=== PATIENT | male | born 1960 | race Two or more races ===

== ENCOUNTER 2025-04-26 18:27 | Inpatient (IN) | payer MEDICARE, OTHER ==
[~2025-04-26] VITALS: Ht 180.3 cm; Wt 89.5 kg
--- NOTE | 2025-04-26 19:01 | ED.PDOC ---
History of Present Illness HPI Comments 64 y/o obese M presents with c/c of shortness of breath. Patient endorses on sudden, unprovoked, and atraumatic onset of difficulty breathing, while eating dinner, earlier, this evening, 45x minutes prior to ED arrival. Significant reported history of [place] s/p PTCA in February,. He comments on having kristen athing difficulty 2x before in the past in addition to having a concurrent nonproductive chronic cough following PTCA placement. No endorsed recent additional ailments, travel, sick contacts, or further pertinent events/history. Denies any chest pain, congestion, fever, or further acute symptoms. Chief Complaint: Shortness of Breath Time Seen by MD: 18:45 Reviewed Notes: Nurses Notes, Medications, Allergies Allergies: Coded Allergies: NO KNOWN ALLERGIES (Unverified , 04/26/25) Information Source: Patient Mode of Arrival: Ambulatory Severity: Moderate Timing: Minutes Duration: Since onset Prehospital treatment: None Past Medical History PAST MEDICAL HISTORY: [place] Surgical History: PTCA Family History Family History: Unknown Social History Smoker: Non-Smoker Alcohol: Denies ETOH Use Drugs: Denies Drug Use Lives In: Home All Other Systems: Reviewed and Negative (Comprehensive review of systems are negative unless stated in HPI) Physical Exam General Appearance: No Apparent Distress, Obese HEENT: Normal ENT Inspection, Pharynx Normal, TMs Normal Neck: Full Range of Motion, Non-Tender, Normal, Normal Inspection Respiratory: Chest Non-Tender, Lungs Clear, No Accessory Muscle Use, No Respiratory Distress, Normal Breath Sounds Cardiovascular: No Edema, No JVD, No Murmur, No Gallop, Normal Peripheral Pulses, Regular Rate/Rhythm Breast Exam: Deferred Gastrointestinal: No Organomegaly, Non Tender, No Pulsatile Mass, Normal Bowel Sounds, Soft Genitalia: Deferred Pelvic: Deferred Rectal: Deferred Extremities: No calf tenderness, Normal capillary refill, Normal inspection, Normal range of motion, Non-tender, No pedal edema Musculoskeletal : Apperance: Normal Neurologic: Alert, compound mixer II-XII nml as Tested, No Motor Deficits, Normal Affect, Normal Mood, No Sensory Deficits Cerebellar Function: Normal Reflexes: Normal Skin: Dry, Normal Color, Warm Lymphatic: No Adenopathy Was a procedure done? Was a procedure done?: No EKG EKG : Pulse Rate (adult): 92 [place]: Normal Cardiac Rhythm: NSR Block: None Hypertrophy: None ST: Normal Differential Dx Considerations may include: URI, PNA, PE, ACS, NJ, anxiety, viral, among others X-Ray, Labs, Meds, VS Vital Signs Date Time Temp Pulse Resp B/P (MAP) Pulse Ox O2 Delivery O2 Flow Rate FiO2 04/26/25 19:17 85 18 99 Room Air 04/26/25 19:17 98.3 85 18 148/88 (108) 99 98.3 04/26/25 19:01 92 04/26/25 18:35 92 04/26/25 18:34 98.0 89 15 186/106 99 98.0 Lab Test 04/26/25 19:36 04/26/25 18:36 Range/Units Troponin I High Sensitivity 14 15 </=54 ng/L Prothrombin Time 10.5 9.3-11.8 sec Prothrombin Time INR 0.99 0.9-1.15 Activated Partial Thromboplast Time 27.1 24.5-34.5 SEC B-Type Natriuretic Peptide 115.29 0-100 pg/mL Current Medications Medications (Trade) Dose Ordered Sig/Tigre Route Start Time Stop Time Status Last Admin Aspirin 162 mg ONCE ONCE PO 04/26/25 19:00 04/26/25 19:01 DC 04/26/25 18:58 [place] [id number] Ph: [phone] DIAGNOSTIC IMAGING Diagnostic Imaging Report : [id number] Signed PATIENT: KEVIN GOODE ACCT: [id number] UNIT: [id number] : 1960 LOC: ER ROOM / BED: / AGE / SEX: 64 / M ADM STATUS: REG ER SERVICE 184 ORDERING PHYSICIAN: LAVERNE PANDA MD PROCEDURE(s): CXR1 - CHEST XRAY 1 VIEW REASON: SOB ORDER NUMBER(s): [id number], ACCESSION NUMBER(s): [id number] CHEST RADIOGRAPH Indication: SOB Technique: Single frontal view of the chest was obtained COMPARISON: None FINDINGS: Lines and Tubes: None Lungs: Clear Pleura: No pleural effusion or pneumothorax. Cardiomediastinal contours: Unremarkable IMPRESSION: No abnormality demonstrated. ATED BY: ARPAN STEINER MD DICTATED DATE/TIME: 04/26/251917 SIGNED BY: ARPAN STEINER MD SIGNED DATE/TIME: 04/26/251917 CC: Time of 1ST Reevaluation: 19:15 Reevaluation 1ST: Unchanged Patient Education/Counseling: Diagnosis, Treatment, Other (need for admission ) Family Education/Counseling: No Family Present SEPSIS Sepsis Screen Date sepsis recognized/suspect: Apr 26, 2025 Time Sepsis recognized/suspect: 1836 Recent Procedure: No On Antibiotic Therapy: No Respiratory Rate >20: No Heart Rate >90: No Temp<36 C (96.8 F) or >38.3 C: No SBP <90 or MAP <65 mmHG: No New Acute Mental Status Change: No Is the patient on CPAP, BIPAP,: No Physician Orders Electrocardigram (04/26/25 18:40) Troponin-I Hs (04/26/25 21:40) Electrocardigram (04/26/25 19:40) Electrocardigram (04/26/25 21:40) Outboard Motor Mechanic (04/26/25 18:47) Chest Xray 1 View (04/26/25 18:47) Vital Signs Date Time Temp Pulse Resp B/P (MAP) Pulse Ox O2 Delivery O2 Flow Rate FiO2 04/26/25 19:17 85 18 99 Room Air 04/26/25 19:17 98.3 85 18 148/88 (108) 99 98.3 04/26/25 19:01 92 04/26/25 18:35 92 04/26/25 18:34 98.0 89 15 186/106 99 98.0 Medications Medications Dose Ordered Sig/Tigre Route Start Time Stop Time Status Last Admin Dose Admin Aspirin 162 mg ONCE ONCE PO 04/26/25 19:00 04/26/25 19:01 DC 04/26/25 18:58 Departure 1 Departure Time of Disposition: 21:07 Impression: Primary Impression: Acute coronary syndrome Disposition: ADMITTED INPATIENT Admit to: [facility] Condition: Guarded Discharged With: Self Comments 64-year-old male with a history of coronary disease and recent stents now presents with some tightness in his chest that he states feels similar to previous heart attack. Patient was given aspirin. His initial troponin is normal. Patient will need to be admitted for supportive care and further wo rkup. Critical Care Note Critical Care Time?: No Stability Stability form required: No Heart Score Heart Score: Heart Score Response (Comments) Value History Moderate Suspicious 1 EKG Normal 0 Age 45-64 1 Risk Factors 1 or 2 risk factors 1 Troponin Normal limit 0 Total 3 I personally scribed for LAVERNE PANDA MD ([email or web address]) on 04/26/25 at 19:01. Electronically submitted by Xander Bullock ([email or web address]). I personally scribed for LAVERNE PANDA MD ([email or web address]) on 04/26/25 at 19:29. Electronically submitted by Xander Bullock ([email or web address]). LAVERNE PANDA MD Apr 26, 2025 19:01
[2025-04-26 19:12] LABS: INR 0.99 (0.9-1.15); Partial Thromboplastin Time 27.1 SEC (24.5-34.5); Prothrombin Time 10.5 sec (9.3-11.8)
--- NOTE | 2025-04-26 19:21 | DVH ---
CHEST RADIOGRAPH Indication: SOB Technique: Single frontal view of the chest was obtained COMPARISON: None FINDINGS: Lines and Tubes: None Lungs: Clear Pleura: No pleural effusion or pneumothorax. Cardiomediastinal contours: Unremarkable IMPRESSION: No abnormality demonstrated.
[2025-04-26] MEDS: SODIUM CHLORIDE 0.9% 1,000 ML IV SCH (21:45)
[2025-04-26] MEDS ORDERED: ACETAMINOPHEN 325 MG TAB PO PRN (21:45)
[2025-04-26] MEDS ORDERED: HYDROcodone-ACET 5/325MG TAB PO PRN (21:45)
[2025-04-26] MEDS ORDERED: ONDANSETRON HCL 4 MG/2 ML VIAL IV PRN (21:45)
[2025-04-26] MEDS ORDERED: DOCUSATE SOD 100 MG CAP PO PRN (21:45)
[2025-04-26] MEDS ORDERED: MORPHINE SULFATE INJ 2 MG/ml SYRG IV PRN (22:30)
[2025-04-26] MEDS ORDERED: DEXTROSE (50%) 50ML SYRG IV PRN (22:30)
[2025-04-26] MEDS ORDERED: NITROGLYCERIN 0.4 MG SL TAB SL PRN (22:30)
[2025-04-26 22:46] LABS: Hematocrit 42.1 % (41.0-53.0); Hemoglobin 14.0 g/dL (13.5-17.5); Mean Corpuscular Hemoglobin 27.4 pg (28.0-32.0); Mean Corpuscular Volume 82.4 fL (80.0-100.0); Nucleated Red Blood Cells % 0.1 %
--- NOTE | 2025-04-26 22:49 | DVHHP2 ---
History of Present Illness Reason for Visit: Acute respiratory distress History of Present Illness The patient is a 64-year-old male with past medical history of hyperlipidemia, DE status post PTCA, hypertension, diabetes mellitus, and CHF who presented to [facility] ED with complaint of shortness of breaths. Patient reports he has been experiencing difficulty breathing associated with chest pressure, nonproductive cough, increased work of breathing, getting worse that prompted this visit. Patient was seen and evaluated in the ED, laboratory data shows troponin 14, BNP 1 15.29, blood pressure 148/88, heart rate 86, temperature 98.3 F, O2 saturation 99% on oxygen. Chest x-ray showed no acute cardiopulmonary disease. Patient was given aspirin 162 mg by mouth x1, please see medication orders section in the computer. On my assessment, patient denies chest pain at this moment, no headache, dizziness, shortness of breaths at this moment, no nausea, vomiting, fever, no chills. Patient was admitted for further evaluation and medical management. Past Medical History HLD, HTN, DE, DM, CHF Past Surgical History PTCA Family History Reviewed, noncontributory to the management of this case. Past Social History The patient lives at home, denies smoking, alcohol or illicit drugs abuse. Review of Systems Constitutional: Yes: Weakness; No: Fever, Chills, Sweats, Malaise, Other Eyes: No: Pain, Vision change, Conjunctivae inflammation, Eyelid inflammation, Other, Redness ENT: No: Ear pain, Ear discharge, Nose pain, Nose discharge, Nose congestion, Mouth pain, Mouth swelling, Throat pain, Throat swelling, Other Respiratory: Shortness of breath; No: Cough, Dry, SOB with excertion, Wheezing, Hemoptysis, Pleuritic Pain, Sputum, Wheezing, Other Cardiovascular: Chest Pain (Chest pressure); No: Palpitations, Orthopnea, Paroxysmal Noc. Dyspnea, Edema, Lt Headedness, Other Gastrointestinal: No: Nausea, Vomiting, Abdominal Pain, Diarrhea, Constipation, Melena, Hematochezia, Other Genitourinary: No Dysuria, No Frequency, No Incontinence, No Hematuria, No Retention, No Other Musculoskeletal: No: other, neck pain, shoulder pain, arm pain, back pain, hand pain, leg pain, foot pain Skin: No: Rash, Lesions, Jaundice, Bruising, Other Neurological: No: Weakness, Numbness, Incoordination, Change in speech, Confusion, Seizures, Other Allergies: Coded Allergies: NO KNOWN ALLERGIES (Unverified , 04/26/25) Medications Current Medications Medications Dose Ordered Sig/Tigre Route Start Time Stop Time Status Last Admin Dose Admin Aspirin 81 mg DAILY PO 04/27/25 10:00 Sodium Chloride 1,000 ml @ 60 mls/hr [id number] IV 04/26/25 21:45 Acetaminophen/ Hydrocodone Bitart 1 tab Q4HP PRN PO 04/26/25 21:45 Ondansetron HCl 4 mg Q4HP PRN IV 04/26/25 21:45 Docusate Sodium 100 mg BIDPRN PRN PO 04/26/25 21:45 Acetaminophen 650 mg Q6HP PRN PO 04/26/25 21:45 Exam Vital Signs Vital Signs Date Time Temp Pulse Resp B/P (MAP) Pulse Ox O2 Delivery O2 Flow Rate FiO2 04/26/25 22:02 97.9 85 17 150/95 (113) 99 97.9 04/26/25 19:17 Room Air General Appearance: Alert, Oriented X3, Cooperative, No acute distress HEENT: Atraumatic, PERRLA, EOMI, Mucous membr. moist/pink Respiratory: Normal air movement Cardiovascular: Regular rate, Normal S1, Normal S2, No murmurs Abdominal: Normal bowel sounds, Soft, No tenderness, No hepatospenomegaly, No m asses Extremities: No clubbing, No cyanosis, No edema, Normal pulses, No tenderness/swelling Skin: No rashes, No significant lesion Neuro: Normal speech, Normal tone, Sensation intact, Cranial nerves 3-12 NL, Reflexes 2+, Other (Generalized weakness) Psych/Mental Status: Mental status NL, Mood NL Labs/Xrays Labs Test 04/26/25 21:52 04/26/25 18:36 Range/Units Troponin I High Sensitivity 14 </=54 ng/L Prothrombin Time 10.5 9.3-11.8 sec Prothrombin Time INR 0.99 0.9-1.15 Activated Partial Thromboplast Time 27.1 24.5-34.5 SEC B-Type Natriuretic Peptide 115.29 0-100 pg/mL PATIENT: GOODEKEVIN MORAN ACCT: [id number] UNIT: [id number] : 1960 LOC: ER ROOM / BED: / AGE / SEX: 64 / M ADM STATUS: REG ER SERVICE 46 ORDERING PHYSICIAN: LAVERNE PANDA MD PROCEDURE(s): CXR1 - CHEST XRAY 1 VIEW REASON: SOB ORDER NUMBER(s): [id number], ACCESSION NUMBER(s): [id number] CHEST RADIOGRAPH Indication: SOB Technique: Single frontal view of the chest was obtained COMPARISON: None FINDINGS: Lines and Tubes: None Lungs: Clear Pleura: No pleural effusion or pneumothorax. Cardiomediastinal contours: Unremarkable IMPRESSION: No abnormality demonstrated. SEPSIS Sepsis Screen Date sepsis recognized/suspect: Apr 26, 2025 Time Sepsis recognized/suspect: 1836 Recent Procedure: No On Antibiotic Therapy: No Respiratory Rate >20: No Heart Rate >90: No Temp<36 C (96.8 F) or >38.3 C: No SBP <90 or MAP <65 mmHG: No New Acute Mental Status Change: No Is the patient on CPAP, BIPAP,: No Physician Orders Electrocardigram (04/26/25 18:40) Electrocardigram (04/26/25 19:40) Electrocardigram (04/26/25 21:40) Hardware Test Engineer (04/26/25 18:47) Chest Xray 1 View (04/26/25 18:47) Aspirin Tablet (04/27/25 10:00) Allergies (04/26/25 21:42) Code Status (04/26/25 21:42) Sodium Chloride 0.9% (04/26/25 21:45) Oxygen Per Hour (04/26/25 21:42) Hydrocodone-Acet 5/325mg Tab (Ringoes 5/32 (04/26/25 21:45) Ondansetron Hcl (Zofran) (04/26/25 21:45) Docusate Sodium Capsule (Colace Capsule) (04/26/25 21:45) Complete Blood Count (04/27/25 04:00) Comprehensive Metabolic Panel (04/27/25 04:00) Condition: Serious (04/26/25 21:42) Acetaminophen Tablet (Tylenol Tablet) (04/26/25 21:45) Bedrest With Bathroom Privileg (04/26/25 21:42) Sequential Compression Device (04/26/25 ) Consistent Carb(Ccho)Diabetes (04/27/25 Breakfast) Carvedilol Tablet (Coreg Tablet) (04/27/25 10:00) Nifedipine Er (Procardia Xl (Time-Releas (04/27/25 10:00) Ticagrelor (Brilinta) (04/27/25 10:00) Atorvastatin (Lipitor) (04/27/25 22:00) Hemoglobin A1c (04/26/25 22:) Complete Blood Count (04/26/25:) Comprehensive Metabolic Panel (04/26/25:) Glucose Blood (Accu-Chek Comfort Curve T (04/27/25 07:00) Bedtime Insulin Scale (04/27/25 22:00) Moderate Insulin Ss (04/27/25 07:00) Dextrose 50% Syringe (04/26/25 22:30) Admit (04/26/25 22:) Nitroglycerin Sublingual (Ntrostat Subli (04/26/25 22:30) Morphine Sulfate Injection (04/26/25 22:30) Stat Ekg For Chest Pain (04/26/25:26) Notify Md Of Changes From Base (04/26/25 22:26) Airport Ramp Attendant For 24 Hours (04/26/25 22:26) Emergency Dysrhythmia Protocol (04/26/25:) Rhythm Strips Once Every Shift (04/26/25 22:26) Oxygen By Nasal Cannula (04/26/25 22:26) Echo 2d Mode Cardiac Dop (04/26/25:) Vital Signs Date Time Temp Pulse Resp B/P (MAP) Pulse Ox O2 Delivery O2 Flow Rate FiO2 04/26/25 22:02 97.9 85 17 150/95 (113) 99 97.9 04/26/25 19:17 85 18 99 Room Air 04/26/25 19:17 98.3 85 18 148/88 (108) 99 98.3 04/26/25 19:01 92 04/26/25 18:35 92 04/26/25 18:34 98.0 89 15 186/106 99 98.0 Medications Medications Dose Ordered Sig/Tigre Route Start Time Stop Time Status Last Admin Dose Admin Aspirin 162 mg ONCE ONCE PO 04/26/25 19:00 04/26/25 19:01 DC 04/26/25 18:58 162 MG Assessment/Plan Assessment/Plan Acute respiratory distress Acute coronary syndrome Generalized weakness Plan 1. Admit to telemetry unit 2. Breathing treatment 3. Pain control management 4. Management of fluids and electrolytes 5. Consultation for hospitalist 6. Diagnostic tests chest x-ray 7. DVT prophylaxis-on aspirin 8. Repeat labs CBC, CMP in a.m. 9. Continue with current medical management 10. Treatment plan discussed with patient/ and RN. Patient/ verbalized understanding. Plan discussed with: Patient, Other (RN) My Orders Orders - ED YEN DNP Procedure Category Date Status Time Aspirin Tablet PHA 04/27/25 In Process 10:00 Allergies MAURICIO 04/26/25 In Process 21:42 Code Status CODE 04/26/25 Transmitted 21:42 Sodium Chloride 0.9% PHA 04/26/25 In Process 21:45 Oxygen Per Hour RT 04/26/25 Transmitted 21:42 Hydrocodone-Acet PHA 04/26/25 In Process 5/325mg Tab (Ringoes 21:45 Ondansetron Hcl PHA 04/26/25 In Process (Zofran) 21:45 Docusate Sodium PHA 04/26/25 In Process Capsule (Colace 21:45 Complete Blood Count LAB 04/27/25 Verified 04:00 Comprehensive LAB 04/27/25 Verified Metabolic Panel 04:00 Condition: Serious MAURICIO 04/26/25 In Process 21:42 Acetaminophen Tablet PHA 04/26/25 In Process (Tylenol Tablet) 21:45 Bedrest With Bathroom MAURICIO 04/26/25 In Process Privileg 21:42 Sequential MAURICIO 04/26/25 In Process Compression Device Consistent DIET 04/27/25 Transmitted Carb(Ccho)Diabetes Breakfast Carvedilol Tablet PHA 04/27/25 Transmitted (Coreg Tablet) 10:00 Nifedipine Er PHA 04/27/25 Transmitted (Procardia Xl 10:00 Ticagrelor (Brilinta) PHA 04/27/25 Verified 10:00 Atorvastatin (Lipitor) PHA 04/27/25 Verified 22:00 Hemoglobin A1c LAB 04/26/25 Transmitted 22:26 Complete Blood Count LAB 04/26/25 Transmitted 22:26 Comprehensive LAB 04/26/25 Transmitted Metabolic Panel 22:26 Glucose Blood PHA 04/27/25 Verified (Accu-Chek Comfort 07:00 Bedtime Insulin Scale PHA 04/27/25 Verified 22:00 Moderate Insulin Ss PHA 04/27/25 Verified 07:00 Dextrose 50% Syringe PHA 04/26/25 Verified 22:30 Admit ADMIT 04/26/25 Verified 22:26 Nitroglycerin [facility] 04/26/25 Verified Sublingual (Ntrostat 22:30 Morphine Sulfate [facility] 04/26/25 Verified Injection 22:30 Stat Ekg For Chest [facility] 04/26/25 Verified Pain 22:26 Notify Md Of Changes [facility] 04/26/25 Verified From Base 22:26 Airport Ramp Attendant For [facility] 04/26/25 Verified 24 Hours 22:26 Emergency Dysrhythmia [facility] 04/26/25 Verified Protocol 22:26 Rhythm Strips Once [facility] 04/26/25 Verified Every Shift 22:26 Oxygen By Nasal RT 04/26/25 Verified Cannula 22:26 Echo 2d Mode Cardiac US 04/26/25 Transmitted DOP 22:26 Problem List: (1) Acute coronary syndrome (2) Acute respiratory distress (3) Generalized weakness Date of Service: Apr 26, 2025 Billing Provider: ED YEN DNP Common Visit Codes: [id number] INP/OBS CARE (HIGH) ED YEN DNP Apr 26, 2025 22:49
[2025-04-26 23:08] LABS: Albumin 4.1 g/dL (3.2-4.8); Anion Gap 11 (5-15); BUN/Creatinine Ratio 27.3 (10.0-20.0); Bilirubin, Total 0.8 mg/dL (0.2-1.0); Calcium 9.0 mg/dL (8.7-10.4); Carbon Dioxide 25 mmol/L (20-31); Chloride 106 mmol/L (98-107); Potassium 4.3 mmol/L (3.5-5.1); Sodium 142 mmol/L (136-145); Total Protein 7.1 g/dL (5.7-8.2)
[2025-04-26 23:09] LABS: Alkaline Phosphatase 135 U/L (46-116); Blood Urea Nitrogen 24 mg/dL (9-23); Glucose 224 mg/dL (74-106)
[2025-04-26 23:10] LABS: Alanine Aminotransferase 45 U/L (7-40)
[2025-04-27] VITALS (8 sets, daily range): BP systolic 112–167; BP diastolic 73–101; PULSE 65–87; RESP 18–20; TEMP 97.8–98.6; O2SAT 96–100
[2025-04-27 05:50] LABS: Hematocrit 38.4 % (41.0-53.0); Hemoglobin 12.9 g/dL (13.5-17.5); Mean Corpuscular Hemoglobin 27.5 pg (28.0-32.0); Mean Corpuscular Volume 81.7 fL (80.0-100.0); Nucleated Red Blood Cells % 0.1 %
[2025-04-27 06:18] LABS: Alanine Aminotransferase 33 U/L (7-40); Albumin 3.7 g/dL (3.2-4.8); Alkaline Phosphatase 104 U/L (46-116); Anion Gap 10 (5-15); BUN/Creatinine Ratio 28.8 (10.0-20.0); Bilirubin, Total 0.7 mg/dL (0.2-1.0); Blood Urea Nitrogen 21 mg/dL (9-23); Calcium 8.7 mg/dL (8.7-10.4); Carbon Dioxide 24 mmol/L (20-31); Potassium 4.1 mmol/L (3.5-5.1); Sodium 143 mmol/L (136-145); Total Protein 6.6 g/dL (5.7-8.2)
[2025-04-27 06:21] LABS: Chloride 109 mmol/L (98-107); Glucose 127 mg/dL (74-106)
[2025-04-27] MEDS: ACCU-CHEK COMFORT CURVE STRIP VI SCH (06:32)
[2025-04-27] MEDS: InsuLIN REG 1unit/0.01ml Soln (100units/ml) SC SCH ×2 (06:33→22:12)
[2025-04-27] MEDS: TICAGRELOR 90 MG TAB PO SCH (09:32)
[2025-04-27] MEDS: CARVEDILOL 3.125 MG TAB PO SCH (09:32)
[2025-04-27] MEDS ORDERED: LISI-275 PO (10:44)
[2025-04-27] MEDS ORDERED: NIFE90TA75 PO (10:44)
[2025-04-27] MEDS ORDERED: DIVA-92 PO (10:44)
[2025-04-27] MEDS ORDERED: ATOR-47 PO (10:44)
[2025-04-27] MEDS ORDERED: CARV3.1240 PO (10:44)
[2025-04-27] MEDS ORDERED: OMEG-20 PO (10:44)
[2025-04-27] MEDS ORDERED: TICA90TA PO (10:44)
[2025-04-27] MEDS ORDERED: ASPI81CH59 PO (10:44)
[2025-04-27] MEDS ORDERED: INSU100I70 SC (10:44)
[2025-04-27] MEDS ORDERED: CHOL20007 PO (10:44)
[2025-04-27] MEDS ORDERED: GLIM4TAB42 PO (10:44)
[2025-04-27 10:48] LABS: Hepatitis B Surface Antigen Negative (Negative)
[2025-04-27 11:07] LABS: Hepatitis C Antibody Negative (Negative)
--- NOTE | 2025-04-27 11:22 | DVHPNRES ---
Progress Note Objective vital signs Vital Sign Date Time Temp Pulse Resp B/P (MAP) Pulse Ox O2 Delivery O2 Flow Rate FiO2 04/27/25 09:33 147/78 04/27/25 09:32 85 04/27/25 08:59 98.3 20 97 98.3 04/27/25 08:15 Room Air* 0 21 Total Intake and Output 04/26/25 04/26/25 04/27/25 15:00 23:00 07:00 Intake Total 200 ml Output Total 0 ml Balance 200 ml medications Current Medications Medications Dose Ordered Sig/Tigre Route Start Time Stop Time Status Last Admin Dose Admin Aspirin 81 mg DAILY PO 04/27/25 10:00 04/27/25 09:32 81 MG Sodium Chloride 1,000 ml @ 60 mls/hr [id number] IV 04/26/25 21:45 Acetaminophen/ Hydrocodone Bitart 1 tab Q4HP PRN PO 04/26/25 21:45 Ondansetron HCl 4 mg Q4HP PRN IV 04/26/25 21:45 Docusate Sodium 100 mg BIDPRN PRN PO 04/26/25 21:45 Acetaminophen 650 mg Q6HP PRN PO 04/26/25 21:45 Carvedilol 3.125 mg Q12HR PO 04/27/25 10:00 04/27/25 09:32 3.125 MG Nifedipine 90 mg DAILY PO 04/27/25 10:00 04/27/25 09:33 90 MG Ticagrelor 90 mg BID PO 04/27/25 10:00 04/27/25 09:32 90 MG Diagnostic Test (Pha) 1 strip ACHS 04/27/25 07:00 04/27/25 06:32 1 STRIP Insulin Human Regular HS SC 04/27/25 22:00 Insulin Human Regular AC SC 04/27/25 07:00 Dextrose 50 ml UD PRN IV 04/26/25 22:30 Nitroglycerin 0.4 mg Q5MINP PRN SL 04/26/25 22:30 Morphine Sulfate 2 mg Q30M PRN IV 04/26/25 22:30 Clonidine HCl 0.1 mg Q4HP PRN PO 04/27/25 02:30 04/27/25 02:25 0.1 MG Atorvastatin Calcium 80 mg HS PO 04/27/25 22:00 UNV Lisinopril 5 mg BID PO 04/27/25 11:30 UNV laboratory and microbiology Laboratory Tests 04/27/25 04:32 Test 04/27/25 04:32 Range/Units Serum Glucose 127 H 74-106 mg/dL My Orders My Orders Orders - ANUJA GUTIERREZ Procedure Category Date Status Time Atorvastatin (Lipitor) PHA 04/27/25 Logged 22:00 Billing Provider: BALTA GOLDEN MD, IVONNE RESIDENT Apr 27, 2025 11:21
--- NOTE | 2025-04-27 11:23 | DVHPNRES ---
Progress Note Date Seen: Apr 27, 2025 Resident Creating Document: ANUJA GUTIERREZ RESIDENT Has the PT tested + for MRSA If YES, has PT been informed?: No Medical Necessity Reason Pt with a Central, PICC or Fol: No Subjective Review of Systems Mahendra Mann JR is a 64-year-old male, with past medical history of hyperlipidemia, [place] (Feb 2025, 1 stent ), hypertension, diabetes mellitus, and CHF (EF40%). The patient came to the [facility] ED with complaint of 1 day of chest pain pressure like, 2/10 that started when he was sitting, sub-sternal, no radiation; the pressure was associated with dizziness and shortness of breath. The patient denies chest pain, palpitation, fever, chill, nausea, vomit. On further questioning, the patient report he was doing well after the stent placement on 03/19 and he was told he had another coronary artery occluded in a 75% that was not treated on that admission in [place] . The patient report the pressure did not improved with rest, and the shortness of breath and dizziness worsen this prompted his visit to the ED. The patient was seen and evaluated in the ED, laboratory data shows troponin 14, BNP 1 15.29, blood pressure 148/88, heart rate 86, temperature 98.3 F, O2 saturation 99% on oxygen. Chest x-ray showed no acute cardiopulmonary disease. Patient was given aspirin 162 mg by mouth x1. Patient was admitted for further evaluation and medical management. Past Medical History: HLD, HTN, PA, DM, CHF Past Surgical History: PTCA (with 1 stent placed 02/2025) Family History: Reviewed, noncontributory to the management of this case. Past Social History: The patient lives at home, denies smoking, alcohol or illicit drugs abuse. ROS: Constitutional: Yes: Weakness; No: Fever, Chills, Sweats, Malaise, Other Eyes: No: Pain, Vision change, Conjunctivae inflammation, Eyelid inflammation, Other, Redness ENT: No: Ear pain, Ear discharge, Nose pain, Nose discharge, Nose congestion, Mouth pain, Mouth swelling, Throat pain, Throat swelling, Other Respiratory: Shortness of breath has resolved; No: Cough, Dry, SOB with excertion, Wheezing, Hemoptysis, Pleuritic Pain, Sputum, Wheezing, Other Cardiovascular: Chest Pain/Chest pressure: improved to 1/10; No: Palpitations, Orthopnea, Paroxysmal Noc. Dyspnea, Edema, Lt Headedness, Other Gastrointestinal: No: Nausea, Vomiting, Abdominal Pain, Diarrhea, Constipation, Melena, Hematochezia, Other Genitourinary: No Dysuria, No Frequency, No Incontinence, No Hematuria, No Retention, No Other Musculoskeletal: No: other, neck pain, shoulder pain, arm pain, back pain, hand pain, leg pain, foot pain Skin: No: Rash, Lesions, Jaundice, Bruising, Other Neurological: Dizziness has resolved. No: Weakness, Numbness, Incoordination, Change in speech, Confusion, Seizures, Other Allergies: Unknown. Objective vital signs Vital Sign Date Time Temp Pulse Resp B/P (MAP) Pulse Ox O2 Delivery O2 Flow Rate FiO2 04/27/25 09:33 147/78 04/27/25 09:32 85 04/27/25 08:59 98.3 20 97 98.3 04/27/25 08:15 Room Air* 0 21 Total Intake and Output 04/26/25 04/26/25 04/27/25 15:00 23:00 07:00 Intake Total 200 ml Output Total 0 ml Balance 200 ml medications Current Medications Medications Dose Ordered Sig/Tigre Route Start Time Stop Time Status Last Admin Dose Admin Aspirin 81 mg DAILY PO 04/27/25 10:00 04/27/25 09:32 81 MG Sodium Chloride 1,000 ml @ 60 mls/hr [id number] IV 04/26/25 21:45 Acetaminophen/ Hydrocodone Bitart 1 tab Q4HP PRN PO 04/26/25 21:45 Ondansetron HCl 4 mg Q4HP PRN IV 04/26/25 21:45 Docusate Sodium 100 mg BIDPRN PRN PO 04/26/25 21:45 Acetaminophen 650 mg Q6HP PRN PO 04/26/25 21:45 Carvedilol 3.125 mg Q12HR PO 04/27/25 10:00 04/27/25 09:32 3.125 MG Nifedipine 90 mg DAILY PO 04/27/25 10:00 04/27/25 09:33 90 MG Ticagrelor 90 mg BID PO 04/27/25 10:00 04/27/25 09:32 90 MG Diagnostic Test (Pha) 1 strip ACHS 04/27/25 07:00 04/27/25 06:32 1 STRIP Insulin Human Regular HS SC 04/27/25 22:00 Insulin Human Regular AC SC 04/27/25 07:00 Dextrose 50 ml UD PRN IV 04/26/25 22:30 Nitroglycerin 0.4 mg Q5MINP PRN SL 04/26/25 22:30 Morphine Sulfate 2 mg Q30M PRN IV 04/26/25 22:30 Clonidine HCl 0.1 mg Q4HP PRN PO 04/27/25 02:30 04/27/25 02:25 0.1 MG Atorvastatin Calcium 80 mg HS PO 04/27/25 22:00 UNV Lisinopril 5 mg BID PO 04/27/25 11:30 UNV Examination General Appearance: Alert, Oriented X3, Cooperative, No acute distress HEENT: Atraumatic, PERRLA, EOMI, Mucous membr. moist/pink Respiratory: Normal air movement Cardiovascular: Regular rate, Normal S1, Normal S2, No murmurs Abdominal: Normal bowel sounds, Soft, No tenderness, No hepatospenomegaly, No masses Extremities: No clubbing, No cyanosis, No edema, Normal pulses, No tenderness/swelling Skin: No rashes, No significant lesion Neuro: Normal speech, Normal tone, Sensation intact, Cranial nerves 3-12 NL, Reflexes 2+, Other Psych/Mental Status: Mental status NL, Mood NL laboratory and microbiology Laboratory Tests 04/27/25 04:32 Test 04/27/25 04:32 Range/Units Serum Glucose 127 H 74-106 mg/dL Problem List/Assessment/Plan Problem List/Assessment/Plan #Acute hypoxic respiratory distress likely due to possible acute on chronic HF #Possible acute coronary syndrome #Acute Generalized weakness possible due to ACS Troponin 14, XFO211.29 ECHO Cardio consult #Chronic CAD (stent placed 03/19) #Possible Acute on Chronic CHF systolic/diastolic failure Birlinta 90 mg po bid ECHO Cardiology consult #Hypertensive urgency #Hypertensive heart disease systolic/diastolic failure Nifedipine 40mg po daily Clonidine 0.1mg po qh4 prn for BP >150/90 #DM type 2 with hyperglycemia Insulin sliding scale HbA1C: 10.7 #Dyslipidemia Atorvastatin 80mg po daily DVT prophylaxis Diet: Cardiac diet, low carb diet Goals of care discussed with the patient for more than 35 minutes: Code Status: Full code PCP: Non. S. Case discussed with Dr. Wellington The plan was discussed with patient and spouse, the patient agrees with the current plan. Plan discussed with: Patient, Spouse My Orders My Orders Orders - ANUJA GUTIERREZ Procedure Category Date Status Time Atorvastatin (Lipitor) PHA 04/27/25 Logged 22:00 Date of Service: Apr 27, 2025 Billing Provider: BALTA GOLDEN MD Common Visit Codes: [id number] INP/OBS CARE(HIGH) ANUJA GUTIERREZ Apr 27, 2025 11:23
--- NOTE | 2025-04-27 14:17 | ECG ---
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
--- NOTE | 2025-04-27 18:45 | DVHSR ---
APPROVED REPORT EXAM: Two-dimensional and M-mode echocardiogram with Doppler and color Doppler. Blood Pressure: 125/72 mmHg INDICATION CHF RISK FACTORS Height: 5'11, Weight: 198 DIMENSIONS LVDd4.4 (3.8-5.7cm)LA (2D)4.1 (1.9-4.0cm)Aortic Root2.8 (2.0-3.7cm) LVDs3.3 (2.5-4.0cm)LA (MM) (1.9-4.0cm)Aortic Cusp Exc1.9 (1.5-2.0cm) EF (%) 50.0 (55-70%)Rt. Atrium4.2 (1.9-4.0cm)Asc. Aorta3.4 cm IVSd1.8 (0.7-1.1cm)RV (D) (1.8-2.4cm) PWd1.3 (0.7-1.1cm) Mitral Valve MitralMitral Stenosis E wave0.46m/sMV Mean GR.1mmHg A wave0.73m/sMV Peak GR.2mmHg E/A ratio0.62D MVAcm2 DECEL [id number] 1/2 Timems Aortic Valve Aortic ValveAortic Stenosis V10.95m/Renae Mean GR.mmHg V21.06m/Renae Peak GR.4mmHg LVOT Diameter2.2 (1.8-2.4cm)Doppler AVA3.41cm2 Pulmonic Valve V20.82m/s Conclusion MILD LVH AND MILD LV DIASTOLIC DYSFUNCTION LV EF IS 50% AORTIC SCLEROSIS SLIGHTLY DILATED RV AND RA NO EFFUSION
[2025-04-27] MEDS ORDERED: ATORVASTATIN 20 MG TAB PO SCH (22:00)
[2025-04-27] MEDS ORDERED: LISINOPRIL 20 MG TAB PO SCH (22:00)
[2025-04-27] MEDS: ATORVASTATIN 20 MG TAB PO SCH (22:02)
[2025-04-27] MEDS: LISINOPRIL 5 MG TAB PO SCH (22:05)
[2025-04-28] VITALS (9 sets, daily range): BP systolic 108–154; BP diastolic 69–97; PULSE 83–91; RESP 16–18; TEMP 97–98.7; O2SAT 95–99
[2025-04-28 07:42] LABS: Anion Gap 11 (5-15); Carbon Dioxide 24 mmol/L (20-31); Potassium 3.8 mmol/L (3.5-5.1); Sodium 142 mmol/L (136-145)
[2025-04-28 07:45] LABS: Calcium 8.6 mg/dL (8.7-10.4); Chloride 107 mmol/L (98-107)
[2025-04-28 07:48] LABS: BUN/Creatinine Ratio 22.9 (10.0-20.0); Blood Urea Nitrogen 19 mg/dL (9-23); Hematocrit 38.5 % (41.0-53.0); Hemoglobin 13.0 g/dL (13.5-17.5); Mean Corpuscular Hemoglobin 27.6 pg (28.0-32.0); Mean Corpuscular Volume 81.6 fL (80.0-100.0); Nucleated Red Blood Cells % 0.3 %
[2025-04-28 07:49] LABS: Glucose 126 mg/dL (74-106)
[2025-04-28] MEDS: LISINOPRIL 5 MG TAB PO SCH (09:25)
--- NOTE | 2025-04-28 09:49 | DVHPNRES ---
Progress Note Date Seen: Apr 28, 2025 Resident Creating Document: ANUJA GUTIERREZ RESIDENT Has the PT tested + for MRSA If YES, has PT been informed?: No Medical Necessity Reason Pt with a Central, PICC or Fol: No Subjective Review of Systems Mahendra Mann JR is a 64-year-old male, with past medical history of hyperlipidemia, [place] (Feb 2025, 1 stent ), hypertension, diabetes mellitus, and CHF (EF40%). The patient came to the [facility] ED with complaint of 1 day of chest pain pressure like, 2/10 that started when he was sitting, sub-sternal, no radiation; the pressure was associated with dizziness and shortness of breath. The patient denies chest pain, palpitation, fever, chill, nausea, vomit. On further questioning, the patient report he was doing well after the stent placement on 03/19 and he was told he had another coronary artery occluded in a 75% that was not treated on that admission in [place] . The patient report the pressure did not improved with rest, and the shortness of breath and dizziness worsen this prompted his visit to the ED. The patient was seen and evaluated in the ED, laboratory data shows troponin 14, BNP 1 15.29, blood pressure 148/88, heart rate 86, temperature 98.3 F, O2 saturation 99% on oxygen. Chest x-ray showed no acute cardiopulmonary disease. Patient was given aspirin 162 mg by mouth x1. Patient was admitted for further evaluation and medical management. Past Medical History: HLD, HTN, VT, DM, CHF Past Surgical History: PTCA (with 1 stent placed 02/2025) Family History: Reviewed, noncontributory to the management of this case. Past Social History: The patient lives at home, denies smoking, alcohol or illicit drugs abuse. On 04/28/25, the patient was evaluated and examined at the bedside. The VS, chart and labs were reviewed. BP:10/69mmHg. Labs are grossly unremarkable. This morning, the patient report start of dizziness, shortness of breath and chest pressure 5/10, substernal, no irradiation. New EKG and troponins were requested. ECHo report: mild LVH, mild LV diastolic disfunction. EF 50%. Cardio consult was placed. We will continue monitoring this patient closely. ROS: Constitutional: Yes: Weakness; No: Fever, Chills, Sweats, Malaise, Other Eyes: No: Pain, Vision change, Conjunctivae inflammation, Eyelid inflammation, Other, Redness ENT: No: Ear pain, Ear discharge, Nose pain, Nose discharge, Nose congestion, Mouth pain, Mouth swelling, Throat pain, Throat swelling, Other Respiratory: Shortness of breath; No: Cough, Dry, SOB with excertion, Wheezing, Hemoptysis, Pleuritic Pain, Sputum, Wheezing, Other Cardiovascular: Chest Pain/Chest pressure: 5/10; No: Palpitations, Orthopnea, Paroxysmal Noc. Dyspnea, Edema, Lt Headedness, Other Gastrointestinal: No: Nausea, Vomiting, Abdominal Pain, Diarrhea, Constipation, Melena, Hematochezia, Other Genitourinary: No Dysuria, No Frequency, No Incontinence, No Hematuria, No Retention, No Other Musculoskeletal: No: other, neck pain, shoulder pain, arm pain, back pain, hand pain, leg pain, foot pain Skin: No: Rash, Lesions, Jaundice, Bruising, Other Neurological: Dizziness has resolved. No: Weakness, Numbness, Incoordination, Change in speech, Confusion, Seizures, Other Objective vital signs Vital Sign Date Time Temp Pulse Resp B/P (MAP) Pulse Ox O2 Delivery O2 Flow Rate FiO2 04/28/25 09:25 114/79 04/28/25 09:25 91 04/28/25 08:41 97.6 18 97 97.6 04/27/25 20:00 Room Air* 0 21 Total Intake and Output 04/27/25 04/27/25 04/28/25 15:00 23:00 07:00 Intake Total 950 ml 600 ml 400 ml Balance 950 ml 600 ml 400 ml medications Current Medications Medications Dose Ordered Sig/Tigre Route Start Time Stop Time Status Last Admin Dose Admin Aspirin 81 mg DAILY PO 04/27/25 10:00 04/28/25 09:25 81 MG Sodium Chloride 1,000 ml @ 60 mls/hr [id number] IV 04/26/25 21:45 04/27/25 14:13 60 MLS/HR Acetaminophen/ Hydrocodone Bitart 1 tab Q4HP PRN PO 04/26/25 21:45 Ondansetron HCl 4 mg Q4HP PRN IV 04/26/25 21:45 Docusate Sodium 100 mg BIDPRN PRN PO 04/26/25 21:45 Acetaminophen 650 mg Q6HP PRN PO 04/26/25 21:45 Carvedilol 3.125 mg Q12HR PO 04/27/25 10:00 04/28/25 09:25 3.125 MG Nifedipine 90 mg DAILY PO 04/27/25 10:00 04/27/25 09:33 90 MG Ticagrelor 90 mg BID PO 04/27/25 10:00 04/28/25 09:25 90 MG Diagnostic Test (Pha) 1 strip ACHS 04/27/25 07:00 04/28/25 06:36 1 STRIP Insulin Human Regular HS SC 04/27/25 22:00 04/27/25 22:12 4 UNITS Insulin Human Regular AC SC 04/27/25 07:00 04/27/25 17:07 6 UNITS Dextrose 50 ml UD PRN IV 04/26/25 22:30 Nitroglycerin 0.4 mg Q5MINP PRN SL 04/26/25 22:30 Morphine Sulfate 2 mg Q30M PRN IV 04/26/25 22:30 Clonidine HCl 0.1 mg Q4HP PRN PO 04/27/25 02:30 04/27/25 02:25 0.1 MG Atorvastatin Calcium 80 mg HS PO 04/27/25 22:00 04/27/25 22:02 80 MG Lisinopril 5 mg DAILY PO 04/28/25 08:30 04/28/25 09:25 5 MG Examination General Appearance: Alert, Oriented X3, Cooperative, No acute distress HEENT: Atraumatic, PERRLA, EOMI, Mucous membr. moist/pink Respiratory: Normal air movement Cardiovascular: Regular rate, Normal S1, Normal S2, No murmurs Abdominal: Normal bowel sounds, Soft, No tenderness, No hepatospenomegaly, No masses Extremities: No clubbing, No cyanosis, No edema, Normal pulses, No tenderness/swelling Skin: No rashes, No significant lesion Neuro: Normal speech, Normal tone, Sensation intact, Cranial nerves 3-12 NL, Reflexes 2+, Other Psych/Mental Status: Mental status NL, Mood NL laboratory and microbiology Laboratory Tests 04/28/25 05:14 Test 04/28/25 05:14 Range/Units Serum Glucose 126 H 74-106 mg/dL Microbiology Date/Time Source Procedure Growth Status 04/27/25 01:59 Nose MRSA Screen - Final Complete Problem List/Assessment/Plan Problem List/Assessment/Plan #Acute hypoxic respiratory distress likely due to possible acute on chronic HF #Possible acute coronary syndrome #Acute Generalized weakness possible due to ACS Troponin 14, ALW675.29 ECHO Cardio consult #Chronic CAD (stent placed 03/19) #Possible Acute on Chronic CHF systolic/diastolic failure Birlinta 90 mg po bid ECHO: EF50% Cardiology consult #Hypertensive urgency #Hypertensive heart disease systolic/diastolic failure Nifedipine 40mg po daily Clonidine 0.1mg po qh4 prn for BP >150/90 #DM type 2 with hyperglycemia Insulin sliding scale HbA1C: 10.7 #Dyslipidemia Atorvastatin 80mg po daily DVT prophylaxis Diet: Cardiac diet, low carb diet Goals of care discussed with the patient for more than 35 minutes: Code Status: Full code PCP: Kaelyn. S. Case discussed with Dr. Wellington The plan was discussed with patient and spouse, the patient agrees with the current plan. Plan discussed with: Patient My Orders My Orders Orders - ANUJA GUTIERREZ Procedure Category Date Status Time Atorvastatin (Lipitor) PHA 04/27/25 In Process 22:00 Consult Care CONS 04/27/25 Transmitted Coordinator Troponin-I Hs LAB 04/28/25 In Process 08:22 Date of Service: Apr 28, 2025 Billing Provider: BALTA GOLDEN MD Common Visit Codes: [id number] INP/OBS CARE(HIGH) ANUJA GUTIERREZ RESIDENT Apr 28, 2025 09:49
[2025-04-28 13:51] LABS: Magnesium 2.2 mg/dL (1.6-2.6); Triglycerides 90.0 mg/dL (< 150)
[2025-04-28 13:53] LABS: Cholesterol 78.0 mg/dL (< 200)
[2025-04-28 13:54] LABS: HDL Cholesterol 26.0 mg/dL (40-59)
--- NOTE | 2025-04-28 14:53 | DVHCONRES ---
Date Seen: Apr 28, 2025 Resident Creating Document: OWEN SWEET RESIDENT Referring Physician Dr Weller Reason for Consultation Chest pain History of Present Illness Vivien is a 64-year-old male with a PMH of type 2 DM, neuropathy, HTN, CVA, IA status post PTCA presented to the ED with the chief complaints of recurrent chest heaviness and shortness of Breath. Patient reported this year March 19 he had a massive heart attack, for which he underwent emergency cardiac catheterization found to have blockers in 2 vessels and 1 stent placed at [place] by Dr. Ennis and advised to follow up on outpatient for other stent placement but unable to follow up due to insurance. After 1 week of procedure patient again started having same symptoms with the no improvement so decided to visit ED. On admission patient troponins were within normal limit and EKG also showed no ST changes but patient has been having intermittent chest pain, dizziness and SOB but no other symptoms. Patient recently underwent coronary thrombectomy of RCA with a stent placement x1 EVELIN and proximal LCX lesion at 80% of which was scheduled for staged procedure. PMH: As above PSH: PTCA Family history: Four-vessel bypass in father Social history: Lives at home. Denies smoking, alcohol and other drug abuse Allergies: No known allergies Home medications: Aspirin, Brilinta,Lipitor,lisinopril,nifedipine,insulin,divalproex, glimepiride Patient seen and examined at the bedside. Patient is currently reporting having chest heaviness which is on and off associated with shortness of Breath no other complaints at this time. Family History: Coronary thrombosis G8 FATHER FH: skin cancer G8 MOTHER Hypertension G8 MOTHER Allergies: Coded Allergies: NO KNOWN ALLERGIES (Unverified , 04/26/25) Home Meds Reported Medications Glimepiride (Glimepiride) 4 Mg Tab, 4 MG PO, TAB 04/27/25 Divalproex Sodium (Depakote Er) 250 Mg Tab, 250 MG PO, TAB 04/27/25 Ticagrelor Base (BRILINTA) 90 Mg Tab, 90 MG PO BID, TAB 04/27/25 Nifedipine (Nifedipine Er) 90 Mg Tab, 1 TAB PO DAILY, #30 TAB 5 Refills 04/27/25 Lisinopril (Lisinopril) 5 Mg Tab, 5 MG PO DAILY, TAB 04/27/25 Insulin Glargine-Yfgn (Insulin Glargine) 100 Unit/Ml Inj, 40 UNIT SC DAILY, INJ 04/27/25 Crawford-3 Fatty Acids (FISH OIL) 1,000 Mg Cap, 1000 MG PO, CAP 04/27/25 Cholecalciferol (VITAMIN D3) 2,000 Unit Tab, 1 TAB PO DAILY, #30 TAB 5 Refills 04/27/25 Carvedilol (Carvedilol) 3.125 Mg Tab, 1 TAB PO BID, #60 TAB 3 Refills 04/27/25 Atorvastatin Calcium (ATORVASTATIN CALCIUM) 80 Mg Tab, 1 TAB PO DAILY, #30 TAB 5 Refills 04/27/25 Aspirin (Aspirin Low Dose) 81 Mg Chw, 1 TAB PO DAILY, #30 TAB 3 Refills 04/27/25 Current Medications Current Medications Medications (Trade) Dose Ordered Sig/Tigre Route PRN Reason Start Time Stop Time Status Last Admin Atorvastatin Calcium (Lipitor) 40 mg HS PO 04/27/25 22:00 04/27/25 10:28 DC Insulin Human Regular (InsuLIN R) HS SC 04/27/25 22:00 04/27/25 22:12 Atorvastatin Calcium (Lipitor) 80 mg HS PO 04/27/25 22:00 04/27/25 22:02 Lisinopril (Zestril Tablet) 20 mg BID PO 04/27/25 22:00 04/27/25 11:18 DC Lisinopril (Zestril Tablet) 5 mg BID PO 04/27/25 22:00 04/28/25 08:20 DC 04/27/25 22:05 Lisinopril (Zestril Tablet) 5 mg DAILY PO 04/28/25 08:30 04/28/25 09:25 Vital Signs Vital Signs Date Time Temp Pulse Resp B/P (MAP) Pulse Ox O2 Delivery O2 Flow Rate FiO2 04/28/25 12:38 97.7 85 16 112/71 (85) 95 97.7 04/28/25 08:30 Room Air* 0 21 Physical Exam Pt is lying on bed General Appearance: Alert, Oriented X3, Cooperative, Not in acute distress HEENT: Atraumatic, Mucous membranes moist/pink Respiratory: Clear to auscultation, Normal air movement, No added sounds Cardiovascular: Regular rate, Normal S1, Normal S2, No murmurs, chest wall tenderness positive Abdominal: Active bowel sounds, Soft, no distention, no tenderness Extremities: No edema, Normal pulses, No tenderness/swelling Skin: No Significant rash, except past surgical scars Neuro: Normal speech, sensorimotor deficits none Psych/Mental Status: Mental status NL, Mood NL Nurse was there as bottom scrubber during examination Labs/Diagnostic Data Labs Test 04/28/25 11:53 04/28/25 05:14 04/27/25 04:32 04/26/25 19:36 Range/Units POC Glucose 241 H 70-106 mg/dl White Blood Count 9.7 4.4-10.8 10^3/uL Red Blood Count 4.73 4.5-5.90 10^6/uL Hemoglobin 13.0 L 13.5-17.5 g/dL Hematocrit 38.5 L 41.0-53.0 % Mean Corpuscular Volume 81.6 80.0-100.0 fL Mean Corpuscular Hemoglobin 27.6 L 28.0-32.0 pg Mean Corpuscular Hemoglobin Concent 33.8 32.0-36.0 g/dL Red Cell Distribution Width 14.0 11.8-14.3 % Platelet Count 276 140-450 10^3/uL Mean Platelet Volume 8.5 6.9-10.8 fL Neutrophils (%) (Auto) 68.5 37.0-80.0 % Lymphocytes (%) (Auto) 19.4 10.0-50.0 % Monocytes (%) (Auto) 9.7 0.0-12.0 % Eosinophils (%) (Auto) 2.1 0.0-7.0 % Basophils (%) (Auto) 0.3 0.0-2.0 % Neutrophils # (Auto) 6.7 1.6-8.6 10 ^3/uL Lymphocytes # (Auto) 1.9 0.4-5.4 10 ^3/uL Monocytes # (Auto) 0.9 0-1.3 10 ^3/uL Eosinophils # (Auto) 0.2 0-0.8 10 ^3/uL Basophils # (Auto) 0 0-0.2 10 ^3/uL Nucleated Red Blood Cells 0.3 % Sodium Level 142 136-145 mmol/L Potassium Level 3.8 3.5-5.1 mmol/L Chloride Level 107 98-107 mmol/L Carbon Dioxide Level 24 20-31 mmol/L Anion Gap 11 5-15 Blood Urea Nitrogen 19 9-23 mg/dL Creatinine 0.83 0.700-1.30 mg/dL Glomerular Filtration Rate Calc 99 >90 mL/min BUN/Creatinine Ratio 22.9 H 10.0-20.0 Serum Glucose 126 H 74-106 mg/dL Calcium Level 8.6 L 8.7-10.4 mg/dL Magnesium Level 2.2 1.6-2.6 mg/dL Troponin I High Sensitivity 27 </=54 ng/L Triglycerides Level 90 < 150 mg/dL Cholesterol Level 78 < 200 mg/dL LDL Cholesterol 33 < 100 mg/dL HDL Cholesterol 26 L 40-59 mg/dL Total Bilirubin 0.7 0.2-1.0 mg/dL Aspartate Amino Transferase (AST) 22 13-40 U/L Alanine Aminotransferase (ALT) 33 7-40 U/L Alkaline Phosphatase 104 46-116 U/L Total Protein 6.6 5.7-8.2 g/dL Albumin 3.7 3.2-4.8 g/dL Hepatitis B Surface Antigen Negative Negative Hepatitis C Antibody Negative Negative Hemoglobin A1c 10.7 H <5.7 % A1C Test 04/26/25 18:36 Range/Units Prothrombin Time 10.5 9.3-11.8 sec Prothrombin Time INR 0.99 0.9-1.15 Activated Partial Thromboplast Time 27.1 24.5-34.5 SEC B-Type Natriuretic Peptide 115.29 0-100 pg/mL Microbiology Date/Time Source Procedure Growth Status 04/27/25 01:59 Nose MRSA Screen - Final Complete Assessment Chest pain rule out ACS HX of NSTEMI s/p PTCA x1 EVELIN in feb 2025 Progressive CAD Type 2 DM HTN HLD HX of CVA Plan/recommendations discussed with the Echocardiogram EKG Chest pain protocol HEART score: 5-7 points (Moderate score) Continue dual antiplatelet therapy Lipid lowering agent BP control Risk factor modification, counseled Due to given risk factors and history patient was scheduled for left heart catheterization Sunday by Dr. Ennis. Plan discussed with patient and family and agreed with the plan. Plan discussed with: Patient, Other (family ans RN) OWEN SWEET RESIDENT Apr 28, 2025 14:53
[2025-04-29] VITALS (14 sets, daily range): BP systolic 106–167; BP diastolic 59–95; PULSE 75–103; RESP 10–22; TEMP 96.5–98; O2SAT 91–98
[2025-04-29 06:24] LABS: Hematocrit 40.2 % (41.0-53.0); Hemoglobin 13.7 g/dL (13.5-17.5); Mean Corpuscular Hemoglobin 27.9 pg (28.0-32.0); Mean Corpuscular Volume 81.5 fL (80.0-100.0); Nucleated Red Blood Cells % 0.1 %
[2025-04-29 06:34] LABS: Anion Gap 11 (5-15); Carbon Dioxide 21 mmol/L (20-31); Potassium 3.8 mmol/L (3.5-5.1); Sodium 142 mmol/L (136-145)
[2025-04-29 06:36] LABS: Calcium 8.8 mg/dL (8.7-10.4)
[2025-04-29 06:41] LABS: BUN/Creatinine Ratio 14.9 (10.0-20.0); Blood Urea Nitrogen 10 mg/dL (9-23); Chloride 110 mmol/L (98-107); Glucose 124 mg/dL (74-106)
[2025-04-29 06:50] LABS: INR 1.07 (0.9-1.15); Partial Thromboplastin Time 27.9 SEC (24.5-34.5); Prothrombin Time 11.3 sec (9.3-11.8)
--- NOTE | 2025-04-29 07:45 | ECG ---
[facility] Test Date: 2025-04-28 Test Time: 23:03:13 Pat Name: KEVIN ENCARNACION Department: Room: 0294T A Gender: M Anesthesiology Crna: Melissa ENCISO : 1960 Requested By: BALTA CARRILLO Order Number: [id number] Reading MD: Measurements Intervals [place] Rate: 91 P: 58 MD: 217 QRS: -41 QRSD: 99 T: 134 QT: 361 QTc: 445 Interpretive Statements Sinus rhythm Prolonged MD interval Abnormal R-wave progression, late transition Inferior infarct, old Lateral leads are also involved Please click the below link to view image of tracing.
[2025-04-29] MEDS: IODIXANOL 320MG/ML 100ML BTL IV ONE (12:04)
[2025-04-29] MEDS: HEPARIN IN NS 1000Units/500mL 1,500 ML ONE (12:04)
[2025-04-29] MEDS: VERAPAMIL 2.5MG/ML INJ 2ML VIAL IV ONE (12:10)
[2025-04-29] MEDS: ANGIOMAX 250 MG VIAL IV ONE (12:10)
[2025-04-29] MEDS: LIDOCAINE 2%HCL (LOCAL ANESTH.) INJ 20ML MDV ONE (12:11)
[2025-04-29] MEDS: fentaNYL CITRATE 100 MCG/2 ML VL ONE (12:11)
[2025-04-29] MEDS: MIDAZOLAM HCL 2MG/2ML 2ml VIAL (1mg/ml) ONE (12:11)
[2025-04-29] MEDS: SODIUM CHL 0.9% 50 ML ONE (12:11)
--- NOTE | 2025-04-29 12:52 | DVHPN2 ---
Progress Note Date Seen: Apr 29, 2025 Has the PT tested + for MRSA If YES, has PT been informed?: No Medical Necessity Reason Pt with a Central, PICC or Fol: No Subjective Patient reports: Feels better Objective vital signs Vital Sign Date Time Temp Pulse Resp B/P (MAP) Pulse Ox O2 Delivery O2 Flow Rate FiO2 04/29/25 10:02 167/95 04/29/25 10:01 90 04/29/25 08:38 97.4 18 98 97.4 04/29/25 08:00 Room Air* 0 21 Total Intake and Output 04/28/25 04/28/25 04/29/25 14:59 22:59 06:59 Intake Total 500 ml 0 ml Output Total 770 ml Balance -270 ml 0 ml medications Current Medications Medications Dose Ordered Sig/Tigre Route Start Time Stop Time Status Last Admin Dose Admin Aspirin 81 mg DAILY PO 04/27/25 10:00 04/29/25 10:02 81 MG Sodium Chloride 1,000 ml @ 60 mls/hr [id number] IV 04/26/25 21:45 04/28/25 23:31 60 MLS/HR Acetaminophen/ Hydrocodone Bitart 1 tab Q4HP PRN PO 04/26/25 21:45 Ondansetron HCl 4 mg Q4HP PRN IV 04/26/25 21:45 Docusate Sodium 100 mg BIDPRN PRN PO 04/26/25 21:45 Acetaminophen 650 mg Q6HP PRN PO 04/26/25 21:45 Carvedilol 3.125 mg Q12HR PO 04/27/25 10:00 04/29/25 10:01 3.125 MG Nifedipine 90 mg DAILY PO 04/27/25 10:00 04/29/25 10:01 90 MG Ticagrelor 90 mg BID PO 04/27/25 10:00 04/29/25 10:02 90 MG Diagnostic Test (Pha) 1 strip ACHS 04/27/25 07:00 04/29/25 06:42 1 STRIP Insulin Human Regular HS SC 04/27/25 22:00 04/28/25 22:38 4 UNITS Insulin Human Regular AC SC 04/27/25 07:00 04/28/25 17:47 3 UNITS Dextrose 50 ml UD PRN IV 04/26/25 22:30 Nitroglycerin 0.4 mg Q5MINP PRN SL 04/26/25 22:30 Morphine Sulfate 2 mg Q30M PRN IV 04/26/25 22:30 Clonidine HCl 0.1 mg Q4HP PRN PO 04/27/25 02:30 04/27/25 02:25 0.1 MG Atorvastatin Calcium 80 mg HS PO 04/27/25 22:00 04/28/25 22:24 80 MG Lisinopril 5 mg DAILY PO 04/28/25 08:30 04/29/25 10:02 5 MG Examination: GENERAL:Abnormal, HEENT:Abnormal, LUNGS:Abnormal, CVS:Abnormal, ABDOMEN:Abnormal laboratory and microbiology Laboratory Tests 04/29/25 05:04 Test 04/29/25 05:04 Range/Units Serum Glucose 124 H 74-106 mg/dL Microbiology Date/Time Source Procedure Growth Status 04/27/25 01:59 Nose MRSA Screen - Final Complete Problem List/Assessment/Plan Problem List/Assessment/Plan ACS recent stemi htn HL obesity DM s/p pci to CX80% lesion observe tonight cont dapt cont statin add zetia or repatha given advanced cad Plan discussed with: Patient My Orders My Orders Orders - STEFANO SOW MD Procedure Category Date Status Time Cl Left Heart Cath CL 04/29/25 Taken 07:32 [facility] F/U with PCP and check A1C/3 months Expected Outcomes/Goals: Controlled blood sugar, gradual wt loss Date of Service: Apr 29, 2025 Billing Provider: STEFANO SOW MD Common Visit Codes: NOT BILLABLE STEFANO SOW MD Apr 29, 2025 12:52
--- NOTE | 2025-04-29 13:00 | DVHOP2 ---
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 PTCA 1 vessel, PCI 1 vessel PREOPERATIVE DIAGNOSES: recent STEMI, staged revasc, unstable angina on CCS class III on mutliple anti anginal POSTOP DIAGNOSIS: CAD DESCRIPTION OF PROCEDURE: The patient or appropriate family signed informed consent understanding the risks, benefits and alternatives of the procedure, they wished to proceed. The patient was brought to the cardiac computer laboratory technician in n.p.o. state. The patient was prepped in a sterile fashion. Sedation was used per cardiac cath protocol. I administered 2 mL of 2% lidocaine to the right wrist. With an antegrade front wall puncture. I cannulated the right radial artery and placed a 6-[place] slender. Next, an intra-arterial spasmolytic was administered. Next, a - 6[place] catheter and XB 3.5 guide and were used for coronary angiogram and LVEDP measurement and pressure pullback. At the completion of procedure, all guides and wires were removed, and there were no immediate complications. FINDINGS: RCA: Moderate vessel off the right sinus of Valsalva, there is no severe flow limiting stenosis. patent prox RCA stent. distal Collaterals to OM branch LEFT MAIN: Moderate size left main, it bifurcates into LAD and circumflex. patent CIRCUMFLEX: Moderate caliber vessel coming off the left main with prox 80% stenosis hazy ulcerated. 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 distal CX mild plaque LAD: LAD is a moderate caliber vessel coming of the left main. mild diffuse plaque. Diag is moderate large with 60% stenosis INTERVENTION: We decided to proceed with coronary intervention. I started with a 6F _XB3.5___ Guide to intubate the LM __. Angiomax bolus and gtt was started. Following this, I decided to wire using an .014 BMW across the culprit lesion with ease. At this time, we performed balloon angioplasty with a _2.5 x 12 mm balloon by s15___ ATMS over __15__ seconds with __2_ number of inflations. Following this, I decided to place a stent using a 2.76 x 15 mm onyx____ stent inflated up to __20 ___ ATMS over 15 seconds with two separate inflations. I did post dil with 3.0 x 15 mm NC up to 18 atms. Following this, the stent balloon removed and angio performed showing 0% residual stenosis. JAN pre/post: 3./3 CONCLUSIONS: 1. sp pci to prox CX 80% lesion 2. patent RCA stent PLAN: Aggressive risk factor modification and medical management for the patient. DAPT x 1 year uninterrupted STEFANO SOW MD Apr 29, 2025 13:00
--- NOTE | 2025-04-29 18:55 | DVHPNRES ---
Progress Note Date Seen: Apr 29, 2025 Resident Creating Document: ANUJA GUTIERREZ RESIDENT Has the PT tested + for MRSA If YES, has PT been informed?: No Medical Necessity Reason Pt with a Central, PICC or Fol: No Subjective Review of Systems Mahendra Mann JR is a 64-year-old male, with past medical history of hyperlipidemia, LA (Feb 2025, 1 stent ), hypertension, diabetes mellitus, and CHF (EF40%). The patient came to the [facility] ED with complaint of 1 day of chest pain pressure like, 2/10 that started when he was sitting, sub-sternal, no radiation; the pressure was associated with dizziness and shortness of breath. The patient denies chest pain, palpitation, fever, chill, nausea, vomit. On further questioning, the patient report he was doing well after the stent placement on 03/19 and he was told he had another coronary artery occluded in a 75% that was not treated on that admission in [place] . The patient report the pressure did not improved with rest, and the shortness of breath and dizziness worsen this prompted his visit to the ED. The patient was seen and evaluated in the ED, laboratory data shows troponin 14, BNP 1 15.29, blood pressure 148/88, heart rate 86, temperature 98.3 F, O2 saturation 99% on oxygen. Chest x-ray showed no acute cardiopulmonary disease. Patient was given aspirin 162 mg by mouth x1. Patient was admitted for further evaluation and medical management. Past Medical History: HLD, HTN, LA, DM, CHF Past Surgical History: PTCA (with 1 stent placed 02/2025) Family History: Reviewed, noncontributory to the management of this case. Past Social History: The patient lives at home, denies smoking, alcohol or illicit drugs abuse. On 04/28/25, the patient was evaluated and examined at the bedside. The VS, chart and labs were reviewed. BP:108/69mmHg. Labs are grossly unremarkable. This morning, the patient report start of dizziness, shortness of breath and chest pressure 5/10, substernal, no irradiation. New EKG and troponins were requested. [facility] report: mild LVH, mild LV diastolic disfunction. EF 50%. Cardio consult was placed. We will continue monitoring this patient closely. On 04/29/25, the patient was re-evaluated and examined at the bedside. The VS, chart and labs were reviewed. Labs are grossly unremarkable. This morning, the patient report feeling well, no shortness of breath or chest pressure. Cardiology is onboard, yesterday, they requested left heart cath. The patient had a left heart cath today in the afternoon, PCI showed proximal circumflex occlusion of 80%. The RCA stent is patent. We will continue monitoring this patient closely. ROS: Constitutional: Yes: Weakness; No: Fever, Chills, Sweats, Malaise, Other Eyes: No: Pain, Vision change, Conjunctivae inflammation, Eyelid inflammation, Other, Redness ENT: No: Ear pain, Ear discharge, Nose pain, Nose discharge, Nose congestion, Mouth pain, Mouth swelling, Throat pain, Throat swelling, Other Respiratory: No Shortness of breath; No: Cough, Dry, SOB with excertion, Wheezing, Hemoptysis, Pleuritic Pain, Sputum, Wheezing, Other Cardiovascular: No Chest Pain/Chest pressure; No: Palpitations, Orthopnea, Paroxysmal Noc. Dyspnea, Edema, Lt Headedness, Other Gastrointestinal: No: Nausea, Vomiting, Abdominal Pain, Diarrhea, Constipation, Melena, Hematochezia, Other Genitourinary: No Dysuria, No Frequency, No Incontinence, No Hematuria, No Retention, No Other Musculoskeletal: No: other, neck pain, shoulder pain, arm pain, back pain, hand pain, leg pain, foot pain Skin: No: Rash, Lesions, Jaundice, Bruising, Other Neurological: Dizziness has resolved. No: Weakness, Numbness, Incoordination, Change in speech, Confusion, Seizures, Other Objective vital signs Vital Sign Date Time Temp Pulse Resp B/P (MAP) Pulse Ox O2 Delivery O2 Flow Rate FiO2 04/29/25 16:44 96.5 79 18 118/80 (93) 95 96.5 04/29/25 08:00 Room Air* 0 21 Total Intake and Output 04/28/25 04/28/25 04/29/25 15:00 23:00 07:00 Intake Total 500 ml 0 ml Output Total 770 ml Balance -270 ml 0 ml medications Current Medications Medications Dose Ordered Sig/Tigre Route Start Time Stop Time Status Last Admin Dose Admin Aspirin 81 mg DAILY PO 04/27/25 10:00 04/29/25 10:02 81 MG Sodium Chloride 1,000 ml @ 60 mls/hr [id number] IV 04/26/25 21:45 04/28/25 23:31 60 MLS/HR Acetaminophen/ Hydrocodone Bitart 1 tab Q4HP PRN PO 04/26/25 21:45 Ondansetron HCl 4 mg Q4HP PRN IV 04/26/25 21:45 Docusate Sodium 100 mg BIDPRN PRN PO 04/26/25 21:45 Acetaminophen 650 mg Q6HP PRN PO 04/26/25 21:45 Carvedilol 3.125 mg Q12HR PO 04/27/25 10:00 04/29/25 10:01 3.125 MG Nifedipine 90 mg DAILY PO 04/27/25 10:00 04/29/25 10:01 90 MG Ticagrelor 90 mg BID PO 04/27/25 10:00 04/29/25 10:02 90 MG Diagnostic Test (Pha) 1 strip ACHS 04/27/25 07:00 04/29/25 17:16 1 STRIP Insulin Human Regular HS SC 04/27/25 22:00 04/28/25 22:38 4 UNITS Insulin Human Regular AC SC 04/27/25 07:00 04/29/25 17:27 6 UNITS Dextrose 50 ml UD PRN IV 04/26/25 22:30 Nitroglycerin 0.4 mg Q5MINP PRN SL 04/26/25 22:30 Morphine Sulfate 2 mg Q30M PRN IV 04/26/25 22:30 Clonidine HCl 0.1 mg Q4HP PRN PO 04/27/25 02:30 04/27/25 02:25 0.1 MG Atorvastatin Calcium 80 mg HS PO 04/27/25 22:00 04/28/25 22:24 80 MG Lisinopril 5 mg DAILY PO 04/28/25 08:30 04/29/25 10:02 5 MG Examination General Appearance: Alert, Oriented X3, Cooperative, No acute distress HEENT: Atraumatic, PERRLA, EOMI, Mucous membr. moist/pink Respiratory: Normal air movement Cardiovascular: Regular rate, Normal S1, Normal S2, No murmurs Abdominal: Normal bowel sounds, Soft, No tenderness, No hepatospenomegaly, No masses Extremities: No clubbing, No cyanosis, No edema, Normal pulses, No tenderness/swelling Skin: No rashes, No significant lesion Neuro: Normal speech, Normal tone, Sensation intact, Cranial nerves 3-12 NL, Reflexes 2+, Other Psych/Mental Status: Mental status NL, Mood NL laboratory and microbiology Laboratory Tests 04/29/25 05:04 Test 04/29/25 05:04 Range/Units Serum Glucose 124 H 74-106 mg/dL Microbiology Date/Time Source Procedure Growth Status 04/27/25 01:59 Nose MRSA Screen - Final Complete Problem List/Assessment/Plan Problem List/Assessment/Plan #Acute hypoxic respiratory distress likely due to possible acute on chronic HFpEF 50% #Possible acute coronary syndrome #Acute Generalized weakness possible due to ACS Troponin 14, QQS394.29 ECHO Cardio consult: Left hearth cath today 04/29/25 #Chronic CAD (stent placed 03/19) #Possible Acute on Chronic CHF systolic/diastolic failure Birlinta 90 mg po bid ECHO: EF50% #Hypertensive urgency #Hypertensive heart disease systolic/diastolic failure Nifedipine 40mg po daily Clonidine 0.1mg po qh4 prn for BP >150/90 #DM type 2 with hyperglycemia Insulin sliding scale HbA1C: 10.7 #Dyslipidemia Atorvastatin 80mg po daily DVT prophylaxis Diet: Cardiac diet, low carb diet Goals of care discussed with the patient for more than 35 minutes: Code Status: Full code PCP: Kaelyn. S. Case discussed with Dr. Pineda The plan was discussed with patient and spouse, the patient agrees with the current plan. Plan discussed with: Patient My Orders My Orders Orders - ANUJA GUTIERREZ Procedure Category Date Status Time Communication Order ORDERS 04/29/25 Transmitted 06:23 Dietary Evaluation [facility] diet F/U with PCP and check A1C/3 months Expected Outcomes/Goals: Controlled blood sugar, gradual wt loss Date of Service: Apr 29, 2025 Billing Provider: BON PINEDA MD Common Visit Codes: [id number] INP/OBS CARE(HIGH) ANUJA GUTIERREZ RESIDENT Apr 29, 2025 18:55
[2025-04-30 00:06] LABS: COVID19 ANTIGEN SOFIA FIA NEGATIVE (NEGATIVE)
[2025-04-30 01:00] VITALS: BP 105/78; PULSE 94; RESP 18; TEMP 97.9; O2SAT 97
[2025-04-30 05:00] VITALS: BP 113/74; PULSE 96; RESP 18; TEMP 97.9; O2SAT 98
[2025-04-30 06:45] LABS: Alanine Aminotransferase 34 U/L (7-40); Alkaline Phosphatase 107 U/L (46-116); Anion Gap 12 (5-15); BUN/Creatinine Ratio 24.7 (10.0-20.0); Blood Urea Nitrogen 22 mg/dL (9-23); Carbon Dioxide 23 mmol/L (20-31); Potassium 3.8 mmol/L (3.5-5.1); Sodium 142 mmol/L (136-145); Total Protein 6.5 g/dL (5.7-8.2)
[2025-04-30 06:46] LABS: Albumin 3.7 g/dL (3.2-4.8); Bilirubin, Total 1.2 mg/dL (0.2-1.0)
[2025-04-30 06:50] LABS: Calcium 8.6 mg/dL (8.7-10.4); Chloride 107 mmol/L (98-107); Glucose 202 mg/dL (74-106)
[2025-04-30 08:00] VITALS: PULSE 94; PULSE 95; RESP 17; O2SAT 94
[2025-04-30 09:00] VITALS: BP 109/68; PULSE 94; RESP 17; TEMP 97.6; O2SAT 96
[2025-04-30 10:27] LABS: Urine Protein, UAD Negative (Negative)
[2025-04-30 11:00] LABS: Amphetamine Screen, Urine Neg (NEGATIVE); Barbiturate Scree,Urine Neg (NEGATIVE); Benzodiazephine Screen, Urine Pos (NEGATIVE); Cannabinoid Screen, Urine Neg (NEGATIVE); Cocaine Screen, Urine Neg (NEGATIVE); Opiate Scree,Urine Neg (NEGATIVE); Phencyclidine Screen, Urine Neg (NEGATIVE)
[2025-04-30] MEDS ORDERED: ASPI81CH59 PO (12:04)
[2025-04-30] MEDS ORDERED: ATOR-47 PO (12:04)
[2025-04-30] MEDS ORDERED: TICA90TA PO (12:04)
[2025-04-30 12:40] VITALS: BP 135/88; PULSE 85; RESP 17; TEMP 97.5; O2SAT 98
[2025-04-30] MEDS ORDERED: EMPA1TAB PO (14:55)
[2025-04-30] MEDS ORDERED: METF-490 PO (14:55)
--- NOTE | 2025-04-30 21:37 | DVHDSRES ---
Discharge Summary Date of Admission Resident Creating Document: ANUJA GUTIERREZ RESIDENT Apr 26, 2025 at 22:26 Date of Discharge: Apr 30, 2025 Admitting Diagnosis #Acute hypoxic respiratory distress likely due to possible acute on chronic HFpEF 50% #Possible acute coronary syndrome #Acute on Chronic CAD #Possible Acute on Chronic CHF systolic/diastolic failure #Hypertensive urgency #Hypertensive heart disease possible systolic/diastolic failure Wounds: No wounds. Labs/Diagnostic Data: Laboratory Results Test 04/30/25 11:23 04/30/25 10:16 04/30/25 05:30 04/29/25 11:10 POC Glucose 231 mg/dl (70-106) Urine Color Yellow (Yellow) Urine Clarity Clear (Clear) Urine pH 5.5 (5.0-9.0) Urine Specific [place] 1.031 (1.001-1.035) Urine Protein Negative (Negative) Urine Ketones Negative (Negative) Urine Blood Negative /uL (Negative) Urine Nitrite Negative (Negative) Urine Bilirubin Negative (Negative) Urine Urobilinogen Normal mg/dL (Negative) Urine Leukocyte Esterase Negative /uL (Negative) Urine RBC 2 /hpf (0 - 3) Urine Microscopic WBC 5 /HPF (0-3) Urine Squamous Epithelial Cells Few /hpf (<5) Urine Bacteria None seen /hpf (None Seen) Urine Mucus Few (None Seen) Urine Glucose 1+ mg/dL (Normal) Urine Opiates Screen Neg (NEGATIVE) Urine Fentanyl Screen Pos (NEGATIVE) Urine Barbiturates Screen Neg (NEGATIVE) Urine Phencyclidine Screen Neg (NEGATIVE) Urine Amphetamines Screen Neg (NEGATIVE) Urine Benzodiazepines Screen Pos (NEGATIVE) Urine Cocaine Screen Neg (NEGATIVE) Urine Cannabinoids Screen Neg (NEGATIVE) Sodium Level 142 mmol/L (136-145) Potassium Level 3.8 mmol/L (3.5-5.1) Chloride Level 107 mmol/L (98-107) Carbon Dioxide Level 23 mmol/L (20-31) Anion Gap 12 (5-15) Blood Urea Nitrogen 22 mg/dL (9-23) Creatinine 0.89 mg/dL (0.700-1.30) Glomerular Filtration Rate Calc 97 mL/min (>90) BUN/Creatinine Ratio 24.7 (10.0-20.0) Serum Glucose 202 mg/dL (74-106) Calcium Level 8.6 mg/dL (8.7-10.4) Total Bilirubin 1.2 mg/dL (0.2-1.0) Aspartate Amino Transferase (AST) 25 U/L (13-40) Alanine Aminotransferase (ALT) 34 U/L (7-40) Alkaline Phosphatase 107 U/L (46-116) Total Protein 6.5 g/dL (5.7-8.2) Albumin 3.7 g/dL (3.2-4.8) Influenza Type A Antigen Negative (Negative) Influenza Type B Antigen Negative (Negative) SARS-CoV-2 Antigen (Rapid) Negative (NEGATIVE) Test 04/29/25 05:04 04/28/25 05:14 04/27/25 04:32 04/26/25 19:36 White Blood Count 9.8 10^3/uL (4.4-10.8) Red Blood Count 4.93 10^6/uL (4.5-5.90) Hemoglobin 13.7 g/dL (13.5-17.5) Hematocrit 40.2 % (41.0-53.0) Mean Corpuscular Volume 81.5 fL (80.0-100.0) Mean Corpuscular Hemoglobin 27.9 pg (28.0-32.0) Mean Corpuscular Hemoglobin Concent 34.2 g/dL (32.0-36.0) Red Cell Distribution Width 13.9 % (11.8-14.3) Platelet Count 272 10^3/uL (140-450) Mean Platelet Volume 8.3 fL (6.9-10.8) Neutrophils (%) (Auto) 66.7 % (37.0-80.0) Lymphocytes (%) (Auto) 21.3 % (10.0-50.0) Monocytes (%) (Auto) 9.8 % (0.0-12.0) Eosinophils (%) (Auto) 2.0 % (0.0-7.0) Basophils (%) (Auto) 0.2 % (0.0-2.0) Neutrophils # (Auto) 6.5 10 ^3/uL (1.6-8.6) Lymphocytes # (Auto) 2.1 10 ^3/uL (0.4-5.4) Monocytes # (Auto) 1.0 10 ^3/uL (0-1.3) Eosinophils # (Auto) 0.2 10 ^3/uL (0-0.8) Basophils # (Auto) 0 10 ^3/uL (0-0.2) Nucleated Red Blood Cells 0.1 % Prothrombin Time 11.3 sec (9.3-11.8) Prothrombin Time INR 1.07 (0.9-1.15) Activated Partial Thromboplast Time 27.9 SEC (24.5-34.5) Magnesium Level 2.2 mg/dL (1.6-2.6) Troponin I High Sensitivity 27 ng/L (</=54) Triglycerides Level 90 mg/dL (< 150) Cholesterol Level 78 mg/dL (< 200) LDL Cholesterol 33 mg/dL (< 100) HDL Cholesterol 26 mg/dL (40-59) Hepatitis B Surface Antigen Negative (Negative) Hepatitis C Antibody Negative (Negative) Hemoglobin A1c 10.7 % A1C (<5.7) Test 04/26/25 18:36 B-Type Natriuretic Peptide 115.29 pg/mL (0-100) Other Laboratory Tests 04/30/25 05:30 04/29/25 05:04 Brief Hx & Hospital Course: Mr. Benny Encarnacion Mahendra ARCE is a 64-year-old male, with past medical history of hyperlipidemia, PR (Feb 2025, 1 stent ), hypertension, diabetes mellitus, and CHF (EF40%). The patient came to the [facility] ED with complaint of 1 day of chest pain pressure like, 2/10 that started when he was sitting, sub-sternal, no radiation; the pressure was associated with dizziness and shortness of breath. The patient denies chest pain, palpitation, fever, chill, nausea, vomit. On further questioning, the patient report he was doing well after the stent placement on 03/19 and he was told he had another coronary artery occluded in a 75% that was not treated on that admission in [place] . The patient report the pressure did not improved with rest, and the shortness of breath and dizziness worsen this prompted his visit to the ED. The patient was seen and evaluated in the ED, laboratory data shows troponin 14, BNP 1 15.29, blood pressure 148/88, heart rate 86, temperature 98.3 F, O2 saturation 99% on oxygen. Chest x-ray showed no acute cardiopulmonary disease. Patient was given aspirin 162 mg by mouth x1. Patient was admitted for further evaluation and medical management. Past Medical History: HLD, HTN, PR, DM, CHF Past Surgical History: PTCA (with 1 stent placed 02/2025) Family History: Reviewed, noncontributory to the management of this case. Past Social History: The patient lives at home, denies smoking, alcohol or illicit drugs abuse. On 04/28/25, the patient was evaluated and examined at the bedside. The VS, chart and labs were reviewed. BP:108/69mmHg. Labs are grossly unremarkable. This morning, the patient report start of dizziness, shortness of breath and chest pressure 5/10, substernal, no irradiation. New EKG and troponins were requested. E[facility] report: mild LVH, mild LV diastolic disfunction. EF 50%. Cardio consult was placed. We will continue monitoring this patient closely. On 04/29/25, the patient was re-evaluated and examined at the bedside. The VS, chart and labs were reviewed. Labs are grossly unremarkable. This morning, the patient report feeling well, no shortness of breath or chest pressure. Cardiology is onboard, yesterday, they requested left heart cath. The patient had a left heart cath today in the afternoon, PCI showed proximal circumflex occlusion of 80%. The RCA stent is patent. We will continue monitoring this patient closely. On 04/30/25, the patient is re-evaluated and examined at bedside. Mendez'ts labs, chart and VS were reviewed. The patient underwent left heart cath without complications. The patient reports feeling well. Due to significant clinical improvement, the patient is being discharge home today, he will follow up with PCP and cardiology in 1 week. All patient's questions and concerns were answered. ROS: Constitutional: Yes: Weakness; No: Fever, Chills, Sweats, Malaise, Other Eyes: No: Pain, Vision change, Conjunctivae inflammation, Eyelid inflammation, Other, Redness ENT: No: Ear pain, Ear discharge, Nose pain, Nose discharge, Nose congestion, Mouth pain, Mouth swelling, Throat pain, Throat swelling, Other Respiratory: No shortness of breath; No: Cough, Dry, SOB with excertion, Wheezing, Hemoptysis, Pleuritic Pain, Sputum, Wheezing, Other Cardiovascular: No chest Pain or chest pressure; No: Palpitations, Orthopnea, Paroxysmal Noc. Dyspnea, Edema, Lt Headedness, Other Gastrointestinal: No: Nausea, Vomiting, Abdominal Pain, Diarrhea, Constipation, Melena, Hematochezia, Other Genitourinary: No Dysuria, No Frequency, No Incontinence, No Hematuria, No Retention, No Other Musculoskeletal: No: other, neck pain, shoulder pain, arm pain, back pain, hand pain, leg pain, foot pain Skin: No: Rash, Lesions, Jaundice, Bruising, Other Neurological: Dizziness has resolved. No: Weakness, Numbness, Incoordination, Change in speech, Confusion, Seizures, Other Physical exam: General Appearance: Alert, Oriented X3, Cooperative, No acute distress HEENT: Atraumatic, PERRLA, EOMI, Mucous membr. moist/pink Respiratory: Normal air movement Cardiovascular: Regular rate, Normal S1, Normal S2, No murmurs Abdominal: Normal bowel sounds, Soft, No tenderness, No hepatospenomegaly, No masses Extremities: No clubbing, No cyanosis, No edema, Normal pulses, No tenderness/swelling Skin: No rashes, No significant lesion Neuro: Normal speech, Normal tone, Sensation intact, Cranial nerves 3-12 NL, Reflexes 2+, Other Psych/Mental Status: Mental status NL, Mood NL Consults/Reason for consult Cardiology: Possible coronary stent thrombosis, CAD Operations or Procedures CHEST RADIOGRAPH Indication: SOB Technique: Single frontal view of the chest was obtained COMPARISON: None FINDINGS: Lines and Tubes: None Lungs: Clear Pleura: No pleural effusion or pneumothorax. Cardiomediastinal contours: Unremarkable IMPRESSION: No abnormality demonstrated. EDURE(s): ECIDC - ECHO 2D MODE CARDIAC DOP REASON: History of CHF ORDER NUMBER(s): [id number], ACCESSION NUMBER(s): [id number] APPROVED REPORT EXAM: Two-dimensional and M-mode echocardiogram with Doppler and color Doppler. Blood Pressure: 125/72 mmHg INDICATION CHF RISK FACTORS Height: 5'11, Weight: 198 DIMENSIONS LVDd 4.4 (3.8-5.7cm) LA (2D) 4.1 (1.9-4.0cm) Aortic Root 2.8 (2.0- 3.7cm) LVDs 3.3 (2.5-4.0cm) LA (MM) (1.9-4.0cm) Aortic Cusp Exc 1.9 (1.5- 2.0cm) EF (%) 50.0 (55-70%) Rt. Atrium 4.2 (1.9-4.0cm) Asc. Aorta 3.4 cm IVSd 1.8 (0.7-1.1cm) RV (D) (1.8-2.4cm) PWd 1.3 (0.7-1.1cm) Mitral Valve Mitral Mitral Stenosis E wave 0.46m/s MV Mean GR. 1mmHg A wave 0.73m/s MV Peak GR. 2mmHg E/A ratio 0.6 2D MVA cm2 DECEL Time 116ms PRESS 1/2 Time ms Aortic Valve Aortic Valve Aortic Stenosis V1 0.95m/s AO Mean GR. mmHg V2 1.06m/s AO Peak GR. 4mmHg LVOT Diameter 2.2 (1.8-2.4cm) Doppler SYDNEY 3.41cm2 Pulmonic Valve V2 0.82m/s Conclusion MILD LVH AND MILD LV DIASTOLIC DYSFUNCTION LV EF IS 50% AORTIC SCLEROSIS SLIGHTLY DILATED RV AND RA NO EFFUSION PROCEDURE(s): EKG - ELECTROCARDIGRAM ORDER NUMBER(s): [id number], ACCESSION NUMBER(s): [id number] [facility] Test Date: 2025-04-28 Test Time: 23:03:13 Pat Name: MAHENDRA ENCARNACION [facility] Gender: M Spout Positioner: Melissa ENCISO : 1960 Requested By: BALTA CARRILLO Order Number: [id number] Reading MD: Measurements Intervals [place] Rate: 91 P: 58 CA: 217 QRS: -41 QRSD: 99 T: 134 QT: 361 QTc: 445 Interpretive Statements Sinus rhythm Prolonged CA interval Abnormal R-wave progression, late transition Inferior infarct, old Lateral leads are also involved Please click the below link to view image of tracing. Patient: MAHENDRA GUAJARDO JR Acct: [id number] : 1960 Loc: TELE-WESTW Age/Sex: 64/M Room: 0294T / Bed: A Attending Phy: ANUJA GUTIERREZ RESIDENT Operative Report Operative Report CARDIAC CONTENT MANAGEMENT CONSULTANT PROCEDURE REPORT [place], [place] Date of Service: 04/29/25 Monotype Setter: Denys Sow MD PROCEDURES PERFORMED: Coronary angiogram, left heart catheterization, conscious sedation administration and supervision, less than 15 minutes; fluoroscopy use and interpretation. PTCA 1 vessel, PCI 1 vessel PREOPERATIVE DIAGNOSES: recent STEMI, staged revasc, unstable angina on CCS class III on mutliple anti anginal POSTOP DIAGNOSIS: CAD DESCRIPTION OF PROCEDURE: The patient or appropriate family signed informed consent understanding the risks, benefits and alternatives of the procedure, they wished to proceed. The patient was brought to the cardiac union laborer in [place] state. The patient was prepped in a sterile fashion. Sedation was used per cardiac cath protocol. I administered 2 mL of 2% lidocaine to the right wrist. With an antegrade front wall puncture. I cannulated the right radial artery and placed a 6-Kiswahili Glidesheath slender. Next, an intra-arterial spasmolytic was administered. Next, a - 6French Pillow catheter and XB 3.5 guide and were used for coronary angiogram and LVEDP measurement and pressure pullback. At the completion of procedure, all guides and wires were removed, and there were no immediate complications. FINDINGS: RCA: Moderate vessel off the right sinus of Valsalva, there is no severe flow limiting stenosis. patent prox RCA stent. distal Collaterals to OM branch LEFT MAIN: Moderate size left main, it bifurcates into LAD and circumflex. patent CIRCUMFLEX: Moderate caliber vessel coming off the left main with prox 80% stenosis hazy ulcerated. 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 distal CX mild plaque LAD: LAD is a moderate caliber vessel coming of the left main. mild diffuse plaque. Diag is moderate large with 60% stenosis INTERVENTION: We decided to proceed with coronary intervention. I started with a 6F _XB3.5___ Guide to intubate the LM __. Angiomax bolus and gtt was started. Following this, I decided to wire using an .014 BMW across the culprit lesion with ease. At this time, we performed balloon angioplasty with a _2.5 x 12 mm balloon by s15___ ATMS over __15__ seconds with __2_ number of inflations. Following this, I decided to place a stent using a 2.76 x 15 mm onyx____ stent inflated up to __20 ___ ATMS over 15 seconds with two separate inflations. I did post dil with 3.0 x 15 mm NC up to 18 atms. Following this, the stent balloon removed and angio performed showing 0% residual stenosis. JAN pre/post: 3./3 CONCLUSIONS: 1. sp pci to prox CX 80% lesion 2. patent RCA stent PLAN: Aggressive risk factor modification and medical management for the patient. DAPT x 1 year uninterrupted DENYS SOW MD Apr 29, 2025 13:00 DICTATED BY:DENYS SOW MD DICTATED DATE/TIME:04/29/25 1300 Condition at Discharge: Stable Final Diagnosis/Problems List #Acute hypoxic respiratory distress likely due to possible acute on chronic HFpEF 50% #Possible acute coronary syndrome #Acute on Chronic CAD #Possible Acute on Chronic CHF systolic/diastolic failure #Hypertensive urgency #Hypertensive heart disease possible systolic/diastolic failure #DM type 2 with hyperglycemia #Dyslipidemia Discharge Disposition: Home SNF Discharge Will this Physician continue t: No Discharge Instruct/Medications Diet: Consistent carbohydrate, Cardiac 2g Na,low cholest Activity: No Restrictions, As Tolerated Follow Up/Referral: F/U with Cardiology in 1 week (Dr. Disla) F/U with PCP in 1 week. Medications: Carvedilol 3.125 mg po q12 Nifedipine 90mg po daily Ticagrelor 90mg po bid [id number] po daily (bedtime) Continue with home medications as below: Scheduled Aspirin (Aspirin Low Dose), 1 TAB PO DAILY, (Reported) Aspirin (Aspirin Low Dose), 1 TAB PO DAILY Atorvastatin Calcium (Atorvastatin Calcium), 1 TAB PO DAILY, (Reported) Atorvastatin Calcium (Atorvastatin Calcium), 1 TAB PO QPM Carvedilol (Carvedilol), 1 TAB PO BID, (Reported) Cholecalciferol (Vitamin D3), 1 TAB PO DAILY, (Reported) Empagliflozin (Jardiance), 10 MG PO DAILY Insulin Glargine-Yfgn (Insulin Glargine), 40 UNIT SC DAILY, (Reported) Lisinopril (Lisinopril), 5 MG PO DAILY, (Reported) Metformin Hydrochloride (Metformin Hcl Er), 1 TAB PO BID Nifedipine (Nifedipine Er), 1 TAB PO DAILY, (Reported) Ticagrelor Base (Brilinta), 90 MG PO BID, (Reported) Ticagrelor Base (Brilinta), 90 MG PO BID Miscellaneous Medications Divalproex Sodium (Depakote Er), 250 MG PO, (Reported) [place]-3 Fatty Acids (Fish Oil), 1,000 MG PO, (Reported) Discontinued Medications Glimepiride (Glimepiride), 4 MG PO, (Reported) Discharge Statement: "Patient was advised to return to the ER or call 911 if any headaches, dizziness, shortness of breath, chest pain, abdominal pain, bleeding, fevers, or worsening of medical condition. Patient was counseled about treatment plan, medications, possible side effects, patientverbalized understanding. All questions were answered to the best of my ability. This discharge took greater then 30 minutes in planning, reviewing documentation, counseling the patient, and discussing with other team members." ASSESSMENT ASSESSMENT Assessment #Acute hypoxic respiratory distress likely due to possible acute on chronic HFpEF 50% #Possible acute coronary syndrome #Acute on Chronic CAD #Possible Acute on Chronic CHF systolic/diastolic failure #Hypertensive urgency #Hypertensive heart disease possible systolic/diastolic failure #DM type 2 with hyperglycemia #Dyslipidemia Goals of care discussed with the patient > 35 min. Discussed plan of care with Dr. Pineda Code status: Full code PCP: Dr. Kaelyn Agustin Plan discussed with: Patient, the patient agrees with the discharge plan. Date of Service: Apr 30, 2025 Billing Provider: BON PINEDA MD Common Visit Codes: [id number] INP/OBS CARE(HIGH) ANUJA GUTIERREZ RESIDENT Apr 30, 2025 21:37
== END 2025-04-30 16:13 | disposition home or self-care (01) | DRG 321 ==
LOC: ER 18:38 → OVERFLOW 22:26 → TELE-WESTW 22:33 → WEST WING 04-30 10:06
PROVIDERS: ADMIT Internal Medicine; ATTEND Internal Medicine
PROC: 4A023N7 Measurement of Cardiac Sampling and Pressure, Left Heart, Percutaneous Approach (ICD-10-PCS; principal; 2025-04-29)
PROC: 027034Z Dilation of Coronary Artery, One Artery with Drug-eluting Intraluminal Device, Percutaneous Approach (ICD-10-PCS; 2025-04-29)
PROC: B211YZZ Fluoroscopy of Multiple Coronary Arteries using Other Contrast (ICD-10-PCS; 2025-04-29)
DX: I25.10 Atherosclerotic heart disease of native coronary artery without angina pectoris (principal); I50.43 Acute on chronic combined systolic (congestive) and diastolic (congestive) heart failure; J96.01 Acute respiratory failure with hypoxia; I24.9 Acute ischemic heart disease, unspecified; I11.0 Hypertensive heart disease with heart failure; E11.65 Type 2 diabetes mellitus with hyperglycemia; E66.9 Obesity, unspecified; Z20.822 Contact with and (suspected) exposure to COVID-19; I16.0 Hypertensive urgency; R05.3 Chronic cough; E78.5 Hyperlipidemia, unspecified; I25.2 Old myocardial infarction; Z68.27 Body mass index [BMI] 27.0-27.9, adult; Z79.4 Long term (current) use of insulin
CPT/HCPCS: 36415; 71045; 80048; 80053; 80061; 80307; 81001; 82962; 83036; 83735; 83880; 84484; 85025; 85610; 85730; 86803; 87081; 87340; 87426; 87804; 92928; 93005; 93306; 93458; G0378; J1815; J2250; Q9967

== ENCOUNTER 2025-06-10 19:13 | Emergency (ER) | payer MEDICARE ==
[~2025-06-10] VITALS: Ht 175.3 cm; Wt 86.2 kg
[~2025-06-10 19:13] MED LIST: ASPI81CH59 PO; ATOR-47 PO; CARV3.1240 PO; CHOL20007 PO; DIVA-92 PO; EMPA1TAB PO; INSU100I70 SC; LISI-275 PO; METF-490 PO; NIFE90TA75 PO; OMEG-20 PO; TICA90TA PO
[2025-06-10] MEDS: ALPRAZolam 0.25 MG TAB PO ONE (20:00)
--- NOTE | 2025-06-10 20:04 | ED.PDOC ---
History of Present Illness HPI Comments 64 year-old male presents to the ED via EMS with a chief complaint of HTN with Anxiety, worsening over the course of today. Patient reports HTN in the 180s- 200s today. Patient reports taking Lisinopril at 1500 with no relief. Per EMS, patient was at 180/104 systolic en route. Patient has a Hx of HTN and DC. Patient has no further complaints at this time. Patient otherwise denies symptoms of chest pain, dizziness, weakness, slurred speech, or palpitations. REVIEW OF SYSTEMS: General: (+) Anxiety. (+) HTN. No fever, no chills, or fatigue HEENT: No sore throat, no earache, no congestion, no neck pain. Cardiac: No chest pain. No palpitations. Lungs: No shortness of breath, no cough. GI: No nausea, no vomiting, no diarrhea, no constipation, no abdominal pain : No dysuria, frequency, or urgency. No hematuria. Musculoskeletal: No joint pain , no joint swelling, no extremity edema. Skin: No rash, no itching. Neuro: No headache, no dizziness, no weakness (And as sated in HPI) PHYSICAL EXAM: General: Awake, alert and oriented. Moderate distress. Skin: Skin in warm, dry and intact. Appropriate color for ethnicity. HEENT: The head is normocephalic and atraumatic. Conjunctivae are clear without exudates or hemorrhage. Sclera is non-icteric. Eyelids are normal in appearance without swelling or lesions. Oral mucosa is pink and moist Neck: The neck is supple with normal range of motion. No JVD. Cardiac: Heart rate and rhythm are normal. No murmurs, gallops, or rubs are auscultated. Respiratory: No signs of respiratory distress. Lung sounds are clear in all lobes bilaterally without rales, rhonchi, or wheezes. Abdominal: Abdomen is soft, non-tender without distention, guarding or rigidity. Bowel sounds are present and normoactive in all four quadrants. Extremities: Lower extremities without edema. Neurological: The patient is awake, alert and oriented to person, place, and time with normal speech. Speech is clear. There is no facial asymmetry. Psychiatric: Appropriate mood and affect. Good judgement and insight. Chief Complaint: High Blood Pressure Time Seen by MD: 19:33 Reviewed Notes: Medications, Allergies Allergies: Coded Allergies: NO KNOWN ALLERGIES (Unverified , 04/26/25) Home Meds Active Scripts Empagliflozin (Jardiance) 10 Mg Tab, 10 MG PO DAILY for 30 Days, #30 TAB 2 Refills Prov:[facility] [place] 04/30/25 Metformin Hydrochloride (METFORMIN HCL ER) 1,000 Mg Tab, 1 TAB PO BID for 30 Days, #60 TAB 1 Refill Prov:[facility]HEL[facility]WILMAN [facility] [address] 04/30/25 Atorvastatin Calcium (ATORVASTATIN CALCIUM) 80 Mg Tab, 1 TAB PO QPM, #30 TAB 3 Refills Prov:CHELSIWILMAN [facility] [address] 04/30/25 Ticagrelor Base (BRILINTA) 90 Mg Tab, 90 MG PO BID for 30 Days, #60 TAB 3 Refills Prov:CHELSIWILMAN [facility] [address] 04/30/25 Aspirin (Aspirin Low Dose) 81 Mg Chw, 1 TAB PO DAILY for 30 Days, #30 TAB 3 Refills Prov:CHELSIWILMAN [facility] 04/30/25 Reported Medications Divalproex Sodium (Depakote Er) 250 Mg Tab, 250 MG PO, TAB 04/27/25 Ticagrelor Base (BRILINTA) 90 Mg Tab, 90 MG PO BID, TAB 04/27/25 Nifedipine (Nifedipine Er) 90 Mg Tab, 1 TAB PO DAILY, #30 TAB 5 Refills 04/27/25 Lisinopril (Lisinopril) 5 Mg Tab, 5 MG PO DAILY, TAB 04/27/25 Insulin Glargine-Yfgn (Insulin Glargine) 100 Unit/Ml Inj, 40 UNIT SC DAILY, INJ 04/27/25 Eskridge-3 Fatty Acids (FISH OIL) 1,000 Mg Cap, 1000 MG PO, CAP 04/27/25 Cholecalciferol (VITAMIN D3) 2,000 Unit Tab, 1 TAB PO DAILY, #30 TAB 5 Refills 04/27/25 Carvedilol (Carvedilol) 3.125 Mg Tab, 1 TAB PO BID, #60 TAB 3 Refills 04/27/25 Atorvastatin Calcium (ATORVASTATIN CALCIUM) 80 Mg Tab, 1 TAB PO DAILY, #30 TAB 5 Refills 04/27/25 Aspirin (Aspirin Low Dose) 81 Mg Chw, 1 TAB PO DAILY, #30 TAB 3 Refills 04/27/25 Information Source: Patient, Emergency Med Personnel Mode of Arrival: EMS Severity: Moderate Timing: Hours Duration: Since onset Past Medical History PAST MEDICAL HISTORY: HTN, DC Surgical History: PTCA Family History Family History: Unknown Social History Smoker: Non-Smoker Alcohol: Denies ETOH Use Drugs: Denies Drug Use Lives In: Home Was a procedure done? Was a procedure done?: No Differential Dx Considerations may include: Differential diagnoses considered include but are not limited to viral syndrome, HTN essential, Anxiety, hypoglycemia, anemia, dehydration, electrolyte imbalance, other X-Ray, Labs, Meds, VS Vital Signs Date Time Temp Pulse Resp B/P (MAP) Pulse Ox O2 Delivery O2 Flow Rate FiO2 06/10/25 22:38 Room Air* 0 21 06/10/25 22:01 75 16 160/91 (114) 97 06/10/25 21:43 98.6 91 14 158/88 (111) 95 98.6 06/10/25 20:00 158/88 06/10/25 19:30 98.5 83 18 180/104 96 98.5 Lab Test 06/10/25 20:20 Range/Units White Blood Count 11.2 H 4.4-10.8 10^3/uL Red Blood Count 5.31 4.5-5.90 10^6/uL Hemoglobin 14.5 13.5-17.5 g/dL Hematocrit 43.3 41.0-53.0 % Mean Corpuscular Volume 81.4 80.0-100.0 fL Mean Corpuscular Hemoglobin 27.2 L 28.0-32.0 pg Mean Corpuscular Hemoglobin Concent 33.4 32.0-36.0 g/dL Red Cell Distribution Width 14.7 H 11.8-14.3 % Platelet Count 294 140-450 10^3/uL Mean Platelet Volume 8.4 6.9-10.8 fL Neutrophils (%) (Auto) 79.2 37.0-80.0 % Lymphocytes (%) (Auto) 12.5 10.0-50.0 % Monocytes (%) (Auto) 6.7 0.0-12.0 % Eosinophils (%) (Auto) 1.3 0.0-7.0 % Basophils (%) (Auto) 0.3 0.0-2.0 % Neutrophils # (Auto) 8.9 H 1.6-8.6 10 ^3/uL Lymphocytes # (Auto) 1.4 0.4-5.4 10 ^3/uL Monocytes # (Auto) 0.8 0-1.3 10 ^3/uL Eosinophils # (Auto) 0.1 0-0.8 10 ^3/uL Basophils # (Auto) 0 0-0.2 10 ^3/uL Nucleated Red Blood Cells 0.0 % Sodium Level 142 136-145 mmol/L Potassium Level 4.9 3.5-5.1 mmol/L Chloride Level 106 98-107 mmol/L Carbon Dioxide Level 25 20-31 mmol/L Anion Gap 11 5-15 Blood Urea Nitrogen 13 9-23 mg/dL Creatinine 0.86 0.700-1.30 mg/dL Glomerular Filtration Rate Calc 98 >90 mL/min BUN/Creatinine Ratio 15.1 10.0-20.0 Serum Glucose 144 H 74-106 mg/dL Calcium Level 9.4 8.7-10.4 mg/dL Troponin I High Sensitivity 30 </=54 ng/L B-Type Natriuretic Peptide 75.97 0-100 pg/mL [place] [id number] Ph: [phone] DIAGNOSTIC IMAGING Diagnostic Imaging Report : [id number] Signed PATIENT: KEVIN GUAJARDO JRACCT: [id number] UNIT: [id number] : 1960 LOC: ER ROOM / BED: / AGE / SEX: 64 / M ADM STATUS: REG ER SERVICE 45 ORDERING PHYSICIAN: VINICIUS SHARP MD PROCEDURE(s): CXR1 - CHEST XRAY 1 VIEW REASON: cp ORDER NUMBER(s): [id number], ACCESSION NUMBER(s): [id number] CLINICAL HISTORY: Chest pain. TECHNIQUE: Single frontal view of the chest was obtained. COMPARISON: XY CHEST XRAY 1 VIEW on DOS: 04/26/25. FINDINGS: DEVICES/LINES/TUBES: None. LUNGS: Clear. PLEURA: No pneumothorax or pleural effusion. MEDIASTINUM/OTHER: Normal heart size and mediastinal contours. Aortic ather osclerosis. Trachea is midline. BONES: Unremarkable. UPPER ABDOMEN: Unremarkable. IMPRESSION: No acute cardiopulmonary process. Time of 1ST Reevaluation: 19:59 Reevaluation 1ST: Unchanged Patient Education/Counseling: Need For Follow Up Family Education/Counseling: No Family Present SEPSIS Sepsis Screen Date sepsis recognized/suspect: Jun 10, 2025 Time Sepsis recognized/suspect: 1933 Recent Procedure: No On Antibiotic Therapy: No Respiratory Rate >20: No Heart Rate >90: No Temp<36 C (96.8 F) or >38.3 C: No SBP <90 or MAP <65 mmHG: No New Acute Mental Status Change: No Is the patient on CPAP, BIPAP,: No Physician Orders Electrocardigram (06/10/25 19:46) Chest Xray 1 View (06/10/25 19:46) Vital Signs Q1HR (06/10/25 19:46) Vital Signs Date Time Temp Pulse Resp B/P (MAP) Pulse Ox O2 Delivery O2 Flow Rate FiO2 06/10/25 22:38 Room Air* 0 21 06/10/25 22:01 75 16 160/91 (114) 97 06/10/25 21:43 98.6 91 14 158/88 (111) 95 98.6 06/10/25 20:00 158/88 06/10/25 19:30 98.5 83 18 180/104 96 98.5 Laboratory Tests Test 06/10/25 20:20 White Blood Count 11.2 10^3/uL (4.4-10.8) H Departure 1 Departure Time of Disposition: 22:38 Impression: Primary Impression: Hypertension Disposition: HOME / SELF CARE / HOMELESS Condition: Stable Comments 64 year old male presented with elevated blood pressure at home. Patient's BP improved during the ED observation. Do not suspect ACS, HTN urgency, CVA. Patient felt stable for discharge home to f/u with PCP promptly. Critical Care Note Critical Care Time?: No Stability Stability form required: No Heart Score Heart Score: Heart Score Response (Comments) Value History N/A 0 EKG N/A 0 Age N/A 0 Risk Factors N/A 0 Troponin N/A 0 Total 0 I personally scribed for VINICIUS SHARP MD ([email or web address]) on 06/10/25 at 20:04. Electronically submitted by Lorraine Escobar ([email or web address]). I personally scribed for VINICIUS SHARP MD ([email or web address]) on 06/10/25 at 20:04. Electronically submitted by Lorraine Escobar ([email or web address]). I personally scribed for VINICIUS SHARP MD ([email or web address]) on 06/10/25 at 20:28. Electronically submitted by Lorraine Escobar ([email or web address]). VINICIUS SHARP MD Jun 10, 2025 20:04
--- NOTE | 2025-06-10 20:18 | DVH ---
CLINICAL HISTORY: Chest pain. TECHNIQUE: Single frontal view of the chest was obtained. COMPARISON: XY CHEST XRAY 1 VIEW on DOS: 04/26/25. FINDINGS: DEVICES/LINES/TUBES: None. LUNGS: Clear. PLEURA: No pneumothorax or pleural effusion. MEDIASTINUM/OTHER: Normal heart size and mediastinal contours. Aortic atherosclerosis. Trachea is midline. BONES: Unremarkable. UPPER ABDOMEN: Unremarkable. IMPRESSION: No acute cardiopulmonary process.
[2025-06-10 20:40] LABS: Hematocrit 43.3 % (41.0-53.0); Hemoglobin 14.5 g/dL (13.5-17.5); Mean Corpuscular Hemoglobin 27.2 pg (28.0-32.0); Mean Corpuscular Volume 81.4 fL (80.0-100.0); Nucleated Red Blood Cells % 0.0 %
[2025-06-10 20:48] LABS: Chloride 106 mmol/L (98-107); Potassium 4.9 mmol/L (3.5-5.1); Sodium 142 mmol/L (136-145)
[2025-06-10 20:49] LABS: Anion Gap 11 (5-15); Calcium 9.4 mg/dL (8.7-10.4); Carbon Dioxide 25 mmol/L (20-31)
[2025-06-10 20:54] LABS: BUN/Creatinine Ratio 15.1 (10.0-20.0); Blood Urea Nitrogen 13 mg/dL (9-23)
[2025-06-10 20:55] LABS: Glucose 144 mg/dL (74-106)
[2025-06-10 21:43] VITALS: TEMP 98.6
[2025-06-10 22:01] VITALS: BP 160/91; PULSE 75; RESP 16; O2SAT 97
== END 2025-06-10 22:58 | disposition home or self-care (01) ==
LOC: ER 19:13 → EDBD 19:13 → ER 22:58
DX: I10 Essential (primary) hypertension (principal); I25.2 Old myocardial infarction; Z79.899 Other long term (current) drug therapy
CPT/HCPCS: 36415; 71045; 80048; 83880; 84484; 85025